=== PATIENT | male | born 1965 | race Caucasian/White ===

== ENCOUNTER → 2019-01-28 | Day surgery (SDC) | payer OTHER ==
--- NOTE | 2019-01-25 17:00 | Pre Op History & Physical ---
DATE OF SURGERY: January 28, 2019. CHIEF COMPLAINT: Scar tissue and contracture in the right anterior neck. This 53-year-old male had neck surgery in May of 2018 for his C-spine problem. The patient has been having difficulty with the scar tissue in the anterior neck where the incision was made. The patient has trouble extending his neck. He has also had trouble turning from side to side. The patient denies any dysphagia, odynophagia, or shortness of breath. The patient has been treated with massage for that area and then steroid injection of that area with no improvement. Even as of now, the patient has difficulty extending his head because of the scar band. REVIEW OF SYSTEMS: Showed no recent cardiovascular, respiratory, or GI problem. PAST MEDICAL HISTORY: The patient has history of type 2 diabetes. PAST SURGICAL HISTORY: The patient has previous knee surgery and elbow surgery, lumbar spine fusion, C-spine fusion x2, and left small finger amputated. ALLERGIES: HE IS ALLERGIC TO PENICILLIN. MEDICATIONS: He is on Trulicity, Synjardy, rosuvastatin, potassium, hydrochlorothiazide, and aspirin. SOCIAL HISTORY: The patient stopped smoking in 2011, had a 15-pack year smoking history. Drinks few drinks per week. FAMILY HISTORY: Noncontributory. PHYSICAL EXAMINATION: VITAL SIGNS: The patient's vital signs were within normal limits. EARS: S how normal tympanic membranes bilaterally. NASAL: Show no obvious abnormality. The patient does have hypertrophy of inferior turbinates. Oropharynx and oral cavity showed no obvious abnormality. NECK: Show no lymph node or thyroid palpable. MUSCULOSKELETAL: Exam of the neck showed the patient has a scar band on the paramedian right side of the neck, anterior to the SCM about 6 or 7 cm from the previous neck incision. The patient has trouble extending his neck because of the scalp contracture. CHEST: Show good air entry bilaterally. CARDIOVASCULAR: Show S1, S2. No murmur noted. ASSESSMENT AND PLAN: Mr. Mo has scar contracture of the anterior neck, which restrict his mobility of the neck. This is secondary to previous surgery and scarring on the soft tissue of the neck. The successful treatment is flap reconstruction with excision of the scar tissue with multiple Z-plasty and other necessary procedures. The complication of procedure includes, but not limited to bleeding, infection, wound breakdown, poor cosmetic result, trouble swallowing, numbness in the area, restriction of movement, persistent recurrence of the problem. The alternative will be continued observation, massage of cicatrix, and also steroid injection of the area. The patient has elected to undergo the surgical procedure. MD LUIZ Dodd/IESHA /[id number]
[~2019-01-28] MED LIST: ASPIR 8181 MG PO; CRESTOR40 MG PO; DEXAMETHASONE SOD PHOS 10 MG/1 ML VIAL ONE; DEXAMETHASONE SOD PHOS INJ 4 MG/ML VIAL ONE; FENTANYL CITRATE/PF 100MCG/2 ML INJ ONE; HYDROCHLOROTHIA25 MG PO; INSULIN REGULAR, HUMAN 100 UNIT/1 ML 3ML VIAL ONE; KETOROLAC TROMETHAMINE 30 MG/ML VIAL ONE; KLOR-CON M1515 MEQ PO; LIDOCAINE 1% W/EPINEPHRINE 20 ML VIAL ONE; LIDOCAINE HCL 2% LOCAL INJ 5 ML SDV VIAL INJ ONE; MIDAZOLAM HCL 2 MG/2 ML VIAL ONE; NEOSTIGMINE 1 MG/ML 10ML VIAL ONE; ONDANSETRON HCL INJ 2MG/ML 2ML 2 MG/ML VIAL ONE; OZEMPIC INJ; PROPOFOL IV EMULSION 10 MG/ML 20 ML VIAL ONE; ROCURONIUM BROMIDE 10 MG/ML 5ML VIAL ONE; SEVOFLURANE INHAL SOLN 250 ML PEN BTL ONE; SUCCINYLCHOLINE 200 MG/10 ML SYR ONE; SYNJARDY XR PO; TERBINAFINE HC250 MG PO; TRULICITY INJ
--- OUTSIDE RECORDS SUMMARY | 2019-01-28 06:45 | XMS REPORT | Clinical Summary ---
Author Author [employer] [facility] [employer] Address Unknown Phone Unavailable Care Team Providers Care Railroad Supervisor Of Engines Name Role Phone Blaze Obrien MD PCP Allergies Comments Active Allergy Reactions Severity Noted Date Penicillins Rash Low 03/06/2017 Medications End Date Status Medication Sig Dispensed Refills Start Date Active hydroCHLOROthiazide See 0 (HYDRODIURIL) 25 MG Instructions, 8 tablet # 90 tab, Refill(s) 2, TAKE 1 TABLET DAILY, Pharmacy: [facility] Active rosuvastatin (CRESTOR) 40 0 MG tablet 8 Active SYNJARDY XR 12.5-1,000 mg 0 tablet, IR & ER, biphasic 8 24hr Active TRULICITY 1.5 mg/0.5 mL 0 pen injector 8 Active potassium citrate 15 mEq=1 tab, 0 (UROCIT-K) 15 mEq tablet PO, BID, # 8 extended release 180 tab, 2 Refill(s), Pharmacy: [facility] Active loratadine (CLARITIN) 10 Take 10 mg by 0 mg tablet mouth daily. Active fluticasone (FLONASE) 50 2 sprays by 0 mcg/actuation nasal spray Each Nare route daily. 06/04/2018 Discontinued dexameth,PF,/norflur-HFC 1 vial as 1 kit 0 245fa 10 mg/mL kit needed (For 7 use in physical therapy, Iontophoresis ). 06/07/2018 Discontinued aspirin (ECOTRIN) 81 MG Take 81 mg by 0 enteric coated tablet mouth daily. Active Problems Problem Noted Date Preop testing 06/06/2018 Lateral epicondylitis of right elbow 07/06/2017 Encounters Care Team Description Date Type Specialty Chanell Duffy MD 06/06/2018 Anesthesia General Surgery Event Enio Murphy MD C3-4, C4-5 ACDF, EXPLORATION and ACDF C5-7 REMOVAL OF HARDWARE,plating, synthetic intervertebral spacer 06/06/2018 Surgery General Surgery Enio Murphy MD Preop testing 06/06/2018 [facility] General Surgery - Encounter 06/07/2018 Enio Murphy MD Preop testing (Primary Dx) 06/04/2018 Pre-Admit Pre-Admission Testing Testing Appointment Enio Murphy MD 06/04/2018 Hospital Radiology Encounter after 01/27/2018 Family History Medical History Relation Name Comments Diabetes Father Diabetes Mother Heart disease Mother Relation Name Status Comments Father Alive Mother Social History Date Tobacco Use Types Packs/Day Years Used Former Smoker Cigarettes 0.5 15 Smokeless Tobacco: Never Used Comments: quit 2011 Alcohol Use Drinks/Week oz/Week Comments Yes social Sex Assigned at Date Recorded Not on file Industry Job Start Date Occupation Not on file Not on file Not on file Travel End Travel History Travel Start No recent travel history available. Last Filed Vital Signs Time Taken Vital Sign Reading 06/07/2018 8:13 AM CDT Blood Pressure 141/78 06/07/2018 8:13 AM CDT Pulse 98 06/07/2018 8:13 AM CDT Temperature 36.7 C (98.1 F) 06/07/2018 8:13 AM CDT Respiratory Rate 18 06/07/2018 8:13 AM CDT Oxygen Saturation 95% - Inhaled Oxygen - Concentration 06/06/2018 8:22 AM CDT Weight 109 kg (239 lb 11.2 oz) 06/06/2018 8:22 AM CDT Height 177.8 cm (5' 10") 06/06/2018 8:22 AM CDT Body Mass Index 34.39 Plan of Treatment Health Maintenance Due Date Last Done Comments COLON CANCER SCREENING 2016 SHINGLES VACCINES (#1) 2016 INFLUENZA VACCINE 06/13/2018 Implants Device Identifier Shelf Expiration Date Model / Serial / [place] [id number] / / NA Novel Cervical Spacer, 8mm Medium, IPM N/A: Spine ALPHATEC 7 Degree Lordotic (Cervical IMPLANT Cervical SPINE Interbody - Implant) - [id number] DEVICES Implanted: Qty: 1 on 06/06/2018 [place] [id number] / / NA Novel Cervical Spacer, 7mm Medium, IPM N/A: Spine ALPHATEC 7 Degree Lordotic (Cervical IMPLANT Cervical SPINE Interbody - Implant) - [id number] DEVICES Implanted: Qty: 1 on 06/06/2018 [place] [id number] / / NA Trestle Lux Anterior Cervical Plate IPM N/A: Spine ALPHATEC Assembly, 2-Level, 32mm - IMPLANT Cervical SPINE [id number] DEVICES Implanted: Qty: 1 on 06/06/2018 [place] [id number] / / 4.0mm Trestle Luxe Variable Angle, IPM N/A: Spine ALPHATEC Self Tapping, Hexalobe Screw, Ti, IMPLANT Cervical SPINE 14mm - [id number] DEVICES Implanted: Qty: 1 on 06/06/2018 [place] [id number] 14 / / 4.0mm Trestle Luxe Variable Angle, IPM N/A: Spine ALPHATEC Self Tapping, Hexalobe Screw, Ti, IMPLANT Cervical SPINE 14mm - [id number] DEVICES Implanted: Qty: 5 on 06/06/2018 by Enio Murphy MD Procedures Comments Procedure Name Priority Date/Time Associated Diagnosis XR CERVICAL SPINE 2 OR 3 Routine 06/06/2018 VW 9:20 PM CDT POC GLUCOSE Routine 06/06/2018 3:11 PM CDT OR [place] > 1 HOUR Routine 06/06/2018 2:40 PM CDT XR CERVICAL SPINE 1 VW Routine 06/06/2018 2:40 PM CDT SURGICAL PATHOLOGY Routine 06/06/2018 REQUEST 12:46 PM CDT TN AN ELECTIVE Routine 06/06/2018 ENDOTRACHEAL AIRWAY 11:23 AM CDT Procedure Note - Mariela Rogers CRNA - 06/06/2018 11:23 AM CDT Airway Performed by: MARIELA ROGERS Authorized by: BETHANY SPARROW Location: OR Urgency: Elective Difficult Airway: No Anesthesio logist: BETHANY SPARROW. Resident/C RNA/AA: MARIELA ROGERS Performed by: resident/C RNA/AA Preoxygena charlene with 100% O2: Yes Mask Ventilatio n: Easy mask Final Airway Type: Endotrache al airway Final Endotrache al Airway: ETT Cuffed: Yes Technique Used: Video laryngosco py Devices/Me thods Used in Placement: Intubatin g stylet Insertion Site: Oral Laryngosco pe Blade/Vide olaryngosc ope Blade Size: 3 ETT Size (mm): 8.0 Cuff at minimum occlusion pressure: Yes Measured from: Lips ETT to Lips (cm): 23 Placement Verified by: CO2 detection, direct visualizat ion and equal breath sounds Laryngosco pic view: Grade I - full view of glottis Rapid Sequence Induction (RSI): No Modified RSI: No Number of Attempts at Approach: 1 DISCECTOMY, CERVICAL, 06/06/2018 CERVICAL SPONDYLOSIS WITH FUSION, ANTERIOR 10:00 AM CDT M47.812 APPROACH Special Needs NEEDS JAQUELINE STEVIE NEEDS LUXE REMOVAL, NATIONAL IOMMARK WITH ALPHATEC NOTIFIED OF CASE SCHEDULED FOR 06/06 1300 POC GLUCOSE Routine 06/06/2018 8:37 AM CDT POTASSIUM LEVEL Routine 06/06/2018 8:35 AM CDT XR CHEST 2 VW Routine 06/04/2018 Preop testing 3:55 PM CDT ECG 12-LEAD Routine 06/04/2018 Preop testing 3:31 PM CDT ZZESTIMATED GFR Routine 06/04/2018 3:30 PM CDT COMPREHENSIVE METABOLIC Routine 06/04/2018 Preop testing PANEL 3:30 PM CDT PARTIAL THROMBOPLASTIN Routine 06/04/2018 Preop testing TIME (PTT) 3:30 PM CDT PROTHROMBIN TIME WITH INR Routine 06/04/2018 Preop testing 3:30 PM CDT HC COMPLETE BLD COUNT Routine 06/04/2018 Preop testing W/AUTO DIFF 3:30 PM CDT after 01/27/2018 Results * XR Cervical Spine 2 Or 3 Vw (06/06/2018 9:20 PM CDT) Narrative Performed At EXAM:XR CERVICAL SPINE 2 OR 3 VW [facility] CLINICAL HISTORY: C-spine fusionfollow up, post op- in pacu COMPARISON: 06/06/2018, 14:30 2 views of the cervical spine are obtained. FINDINGS: Evidence for an ACDF from the C3-C5 levels with intervertebral disc spacers. Hardware appears intact. Alignment of vertebral bodies is normal. No acute fracture or spondylolisthesis is seen. Dens is at midline and appears intact on this limited evaluation. Soft tissues are unremarkable. IMPRESSION: Evidence for an ACDF from the C3-C5 levels with intervertebral disc spacers. Hardware appears intact. [facility]-[id number] Procedure Note Hm Interface, Radiology Results Incoming - 06/06/2018 9:27 PM CDT EXAM: XR CERVICAL SPINE 2 OR 3 VW CLINICAL HISTORY: C-spine fusion follow up, post op- in pacu COMPARISON: 06/06/2018, 14:30 2 views of the cervical spine are obtained. FINDINGS: Evidence for an ACDF from the C3-C5 levels with intervertebral disc spacers. Hardware appears intact. Alignment of vertebral bodies is normal. No acute fracture or spondylolisthesis is seen. Dens is at midline and appears intact on this limited evaluation. Soft tissues are unremarkable. IMPRESSION: Evidence for an ACDF from the C3-C5 levels with intervertebral disc spacers. Hardware appears intact. [facility]-[id number] Performing Organization Address City/[facility]/Zipcode Phone Number [facility] [address] [place] [address] * POC glucose (06/06/2018 3:11 PM CDT) Only the most recent of 2 results within the time period is included. POC glucose 167 (H) 65 - 99 mg/dL [facility] DEPARTMENT OF Comment: PATHOLOGY AND Meter ID: [id number] GENOMIC MEDICINE Electronic Intelligence Officer: Meliton Ibarra Performing Organization Address City/[facility]/Zipcode Phone Number [address] [place] [address] PATHOLOGY AND GENOMIC MEDICINE * OR [place] > I Hour (06/06/2018 2:40 PM CDT) Narrative Performed At EXAMINATION:OR [place] 1 HOUR [facility] C-arm fluoroscopy was requested in OR.FLUORO TIME 0:07 IMPRESSION: Separate operative report will be issued by the physician performing the procedure. [id number] Procedure Note Interface, Radiology Results Incoming - 06/06/2018 3:36 PM CDT EXAMINATION: OR FL 1 HOUR C-arm fluoroscopy was requested in OR. FLUORO TIME 0:07 IMPRESSION: Separate operative report will be issued by the physician performing the procedure. [id number] Performing Organization Address [facility] Phone Number [facility] [address] [place] [address] * XR Cervical Spine 1 Vw (06/06/2018 2:40 PM CDT) Narrative Performed At EXAMINATION: XR CERVICAL SPINE 1 VW [facility] CLINICAL HISTORY: Intraoperative study COMPARISON:None IMPRESSION: Single lateral fluoroscopic spot view of the cervical spine demonstrates anterior spinal fusion C3-C5 with anterior plate and screw fixation and interbody grafts. Hardware appears in functional position. [id number] Procedure Note Interface, Radiology Results Incoming - 06/06/2018 4:08 PM CDT EXAMINATION: XR CERVICAL SPINE 1 VW CLINICAL HISTORY: Intraoperative study COMPARISON: None IMPRESSION: Single lateral fluoroscopic spot view of the cervical spine demonstrates anterior spinal fusion C3-C5 with anterior plate and screw fixation and interbody grafts. Hardware appears in functional position. [id number] Performing Organization Address [facility] Phone Number [facility] [address] [place] [address] * Surgical pathology request (06/06/2018 12:46 PM CDT) [facility] DEPARTMENT OF PATHOLOGY AND GENOMIC MEDICINE Surgical pathology report See link below for PDF Lab [facility] DEPARTMENT OF Report PATHOLOGY AND GENOMIC MEDICINE Result status This is Final Report to [facility] DEPARTMENT OF [id number] PATHOLOGY AND GENOMIC MEDICINE Performing Organization Address [facility] Cent[facility] Phone Number [address] [place] [address] PATHOLOGY AND GENOMIC MEDICINE * Potassium level (06/06/2018 8:35 AM CDT) Potassium 3.9 3.5 - 5.0 mEq/L [facility] DEPARTMENT OF PATHOLOGY AND GENOMIC MEDICINE Specimen Plasma specimen Performing Organization Address [facility] Cent[facility]ode Phone Number [facility] DEPARTMENT [address] [place] [address] PATHOLOGY AND GENOMIC MEDICINE * XR Chest 2 Vw (06/04/2018 3:55 PM CDT) Narrative Performed At EXAMINATION:XR CHEST 2 VW [facility] CLINICAL HISTORY:Z01.818 Encounter for other preprocedural examination, preop XR CHEST 2 VWimages are submitted COMPARISON:NONE FINDINGS: Lines/tubes:None. Heart and mediastinum:Unremarkable Lungs:The lungs are well inflated and clear. There is no evidence of pneumonia or pulmonary edema. Pleura:There is no pleural effusion or pneumothorax. Bones:Mild degenerative changes of thoracic spine. Status post ACDF. IMPRESSION: Negative for acute cardiopulmonary disease. [id number] Procedure Note Hm Interface, Radiology Results Incoming - 06/04/2018 4:16 PM CDT EXAMINATION: XR CHEST 2 VW CLINICAL HISTORY: Z01.818 Encounter for other preprocedural examination, preop XR CHEST 2 VW images are submitted COMPARISON: NONE FINDINGS: Lines/tubes: None. Heart and mediastinum: Unremarkable Lungs: The lungs are well inflated and clear. There is no evidence of pneumonia or pulmonary edema. Pleura: There is no pleural effusion or pneumothorax. Bones: Mild degenerative changes of thoracic spine. Status post ACDF. IMPRESSION: Negative for acute cardiopulmonary disease. [id number] Performing Organization Address [facility]/Zipcode Phone Number [facility] [address] [place] [address] * ECG 12 lead (06/04/2018 3:31 PM CDT) Ventricular rate 85 [facility] Atrial rate 85 [facility] TN interval 172 [facility] QRSD interval 90 [facility] QT interval 366 [facility] QTC interval 435 [facility] P axis 1 49 [facility] QRS axis 1 -37 [facility] T wave axis 17 [facility] EKG impression Normal sinus rhythm-Left axis [facility] MUSE deviation-Low voltage QRS-Abnormal ECG-No previous ECGs available- Performing Organization Address [facility] Phone Number [facility] MUSE [address] [place] [address] * Estimated GFR (06/04/2018 3:30 PM CDT) GFR Non Af Amer 79 mL/min/1.73 m2 [facility] DEPARTMENT OF PATHOLOGY AND GENOMIC MEDICINE GFR Af Amer >90 mL/min/1.73 m2 [facility] DEPARTMENT OF Comment: PATHOLOGY AND Chronic kidney disease: <60 GENOMIC MEDICINE mL/min/1.73m2 Kidney failure: <15 mL/min/1.73m2 The estimated GFR is calculated from the IDMS-traceable Modification of Diet in Renal Disease Equation. The accuracy of the calculation is poor when the creatinine is normal. Calculated values >90 mL/min/1.73m2 are not reported. This equation has not been validated in children (<18 years), women, the elderly (>70 years), or ethnic groups other than Caucasians and Americans. Specimen Plasma specimen Performing Organization Address [facility] Phone Number [address] [place] [address] PATHOLOGY AND [employer] [facility] * Partial thromboplastin time, activated (06/04/2018 3:30 PM CDT) PTT 28.8 23.0 - 36.0 sec [facility] DEPARTMENT OF Comment: PATHOLOGY AND PTT therapeutic range for [facility] MEDICINE unfractionated heparin is 61.0-112.0 seconds which corresponds to Anti-Xa 0.3-0.7 U/ml. Specimen Blood Performing Organization Address [facility] Phone Number [address] [place] [address] PATHOLOGY AND [employer] [facility] * Prothrombin time with INR (06/04/2018 3:30 PM CDT) Prothrombin time 12.9 12.0 - 15.0 sec [facility] DEPARTMENT OF PATHOLOGY AND [employer] MEDICINE INR 1.0 [facility] DEPARTMENT OF Comment: PATHOLOGY AND The International Normalized [facility] MED[facility] Ratio (INR) is a therapeutic monitoring tool for patients who are stable on oral anticoagulant therapy. An INR of 2.0-3.0 is suggested for deep vein thrombosis/pulmonary embolism. Specimen Blood Performing Organization Address [facility] Phone Number [address] [place] [id number] PATHOLOGY AND [employer] [facility] * CBC with platelet and differential (06/04/2018 3:30 PM CDT) WBC 6.63 4.50 - 11.00 k/uL [facility] DEPARTMENT OF PATHOLOGY AND [employer] MEDICINE RBC 5.65 4.40 - 6.00 m/uL [facility] DEPARTMENT OF PATHOLOGY AND GENOMIC MEDICINE HGB 15.5 14.0 - 18.0 g/dL [facility] DEPARTMENT OF PATHOLOGY AND GENOMIC MEDICINE HCT 47.0 41.0 - 51.0 % [facility] DEPARTMENT OF PATHOLOGY AND GENOMIC MEDICINE MCV 83.2 82.0 - 100.0 fL [facility] DEPARTMENT OF PATHOLOGY AND GENOMIC MEDICINE MCH 27.4 27.0 - 34.0 pg [facility] DEPARTMENT OF PATHOLOGY AND GENOMIC MEDICINE MCHC 33.0 31.0 - 37.0 g/dL [facility] DEPARTMENT OF PATHOLOGY AND GENOMIC MEDICINE RDW - SD 41.6 37.0 - 55.0 fL [facility] DEPARTMENT OF PATHOLOGY AND GENOMIC MEDICINE MPV 10.4 8.8 - 13.2 fL [facility] DEPARTMENT OF PATHOLOGY AND GENOMIC MEDICINE Platelet count 231 150 - 400 k/uL [facility] DEPARTMENT OF PATHOLOGY AND GENOMIC MEDICINE Nucleated RBC 0.00 /100 WBC [facility] DEPARTMENT OF PATHOLOGY AND GENOMIC MEDICINE Neutrophils 50.3 39.0 - 69.0 % [facility] DEPARTMENT OF PATHOLOGY AND GENOMIC MEDICINE Lymphocytes 37.3 25.0 - 45.0 % [facility] DEPARTMENT OF PATHOLOGY AND GENOMIC MEDICINE Monocytes 9.8 0.0 - 10.0 % [facility] DEPARTMENT OF PATHOLOGY AND GENOMIC MEDICINE Eosinophils 1.1 0.0 - 5.0 % [facility] DEPARTMENT OF PATHOLOGY AND GENOMIC MEDICINE Basophils 1.2 (H) 0.0 - 1.0 % [facility] DEPARTMENT OF PATHOLOGY AND GENOMIC MEDICINE Specimen Blood Performing Organization Address City/State/Zipcode Phone Number [facility] [address] [place] [address] PATHOLOGY AND GENOMIC MEDICINE * Comprehensive metabolic panel (06/04/2018 3:30 PM CDT) Sodium 139 135 - 148 mEq/L [facility] DEPARTMENT OF PATHOLOGY AND GENOMIC MEDICINE Potassium 3.2 (L) 3.5 - 5.0 mEq/L [facility] DEPARTMENT OF PATHOLOGY AND GENOMIC MEDICINE Chloride 94 (L) 98 - 112 mEq/L [facility] DEPARTMENT OF PATHOLOGY AND GENOMIC MEDICINE CO2 28 24 - 31 mEq/L [facility] DEPARTMENT OF PATHOLOGY AND GENOMIC MEDICINE Anion gap 17@ANIO (H) 7 - 15 mEq/L [facility] DEPARTMENT OF PATHOLOGY AND GENOMIC MEDICINE BUN 18 6 - 20 mg/dL [facility] DEPARTMENT OF PATHOLOGY AND GENOMIC MEDICINE Creatinine 1.0 0.7 - 1.2 mg/dL [facility] DEPARTMENT OF PATHOLOGY AND GENOMIC MEDICINE Glucose 120 (H) 65 - 99 mg/dL [facility] DEPARTMENT OF PATHOLOGY AND GENOMIC MEDICINE Calcium 9.7 8.3 - 10.2 mg/dL [facility] DEPARTMENT OF PATHOLOGY AND GENOMIC MEDICINE Protein 7.9 6.3 - 8.3 g/dL [facility] DEPARTMENT OF Comment: PATHOLOGY AND [place] GENOMIC MEDICINE 4.6-7.0 g/dL 1 week 4.4-7.6 g/dL 7 months-1year 5.1-7.3 g/dL 1-2 years5.6-7 .5 g/dL >3 years6.0-8 .0 g/dL 18-150 6.3-8.3 g/dL Albumin 4.6 3.5 - 5.0 g/dL [facility] OF PATHOLOGY AND GENOMIC MEDICINE A/G ratio 1.4 0.7 - 3.8 [facility] OF PATHOLOGY AND GENOMIC MEDICINE Alkaline phosphatase 69 40 - 129 U/L [facility] DEPARTMENT OF PATHOLOGY AND GENOMIC MEDICINE AST 22 10 - 50 U/L [facility] DEPARTMENT OF PATHOLOGY AND GENOMIC MEDICINE ALT 25 5 - 50 U/L [facility] OF PATHOLOGY AND GENOMIC MEDICINE Total bilirubin 0.4 0.0 - 1.2 mg/dL [facility] OF PATHOLOGY AND GENOMIC MEDICINE Specimen Plasma specimen Performing Organization Address City/State/Zipcode Phone Number [facility] [address] [place] [address] PATHOLOGY AND GENOMIC MEDICINE after 01/27/2018 Insurance Payer Benefit Subscriber ID Type Phone Address Plan / Group AETNA AETNA xxxxxxxxxx HMO HMO,POS,EP O, MC/EC Advance Directives Patient has advance care planning documents, and code status on file. For more i nformation, please contact: Sy Cast [address] [place] [address] Date Inactivated Comments Code Status Date Activated 06/07/2018 2:15 PM Full Code 06/06/2018 7:28 PM Code Status decision reached by: Patient
--- OUTSIDE RECORDS SUMMARY | 2019-01-28 06:46 | XMS REPORT | Summary of Care ---
Author Author [facility] Organization [facility] Address Unknown Phone Unavailable Encounter HQ Orly(FIN) [phone] Date(s): 01/10/19 - 01/10/19 [facility] [address] [place] [address] Discharge Disposition: Home or Self Care Attending Physician: Yoav Starr MD Vital Signs Most recent to 1 oldest [Reference Range]: Height 177.8 cm (01/10/19 9:54 AM) Temperature Oral 98.7 DegF [96.4-99.1 DegF] (01/10/19 9:54 AM) Blood Pressure 144/78 mmHg [90-140/60-90 mmHg] *HI* (01/10/19 9:54 AM) Peripheral Pulse 84 bpm Rate [60-100 bpm] (01/10/19 9:54 AM) Weight 111.477 kg (01/10/19 9:54 AM) Body Mass Index 35.26 m2 (01/10/19 9:54 AM) Problem List Condition Effective Dates Status Health Status Informant Acute bronchitis1, 2 01/30/15 Active DM - Diabetes Resolved mellitus(Confirmed) Hyperlipidemia(Confi Resolved rmed) Kidney stone3 02/17/15 Active Obesity(Confirmed) Active Ureteric stone4 04/24/15 Active 1Data migrated from [employer] on 05/20/15. 2Data migrated from [employer] on 04/14/15. 3Data migrated from [employer] on 04/14/15. 4Data migrated from [employer] on 05/20/15. Allergies, Adverse Reactions, Alerts Substance Reaction Severity Status penicillin Active Medications aspirin 81 mg tablet, chewable 81 mg=1 tab, CHEW, Daily, 0 Refill(s) Start Date: 01/10/19 Status: Ordered hydrochlorothiazide 25 mg oral tablet 25 mg=1 tab, PO, Daily, # 90 tab, 2 Refill(s), Pharmacy: [facility] Start Date: 01/10/19 Stop Date: 10/07/19 Status: Ordered Ozempic (1 mg dose) 2 mg/1.5 mL subcutaneous solution SUB-Q, 0 Refill(s) Start Date: 01/10/19 Status: Ordered potassium citrate 15 mEq oral tablet, extended release 15 mEq=1 tab, PO, BID, # 180 tab, 2 Refill(s), Pharmacy: [facility] Start Date: 01/10/19 Stop Date: 10/07/19 Status: Ordered rosuvastatin 40 mg oral tablet 40 mg=1 tab, PO, Bedtime, # 30 tab, 0 Refill(s) Start Date: 01/10/19 Stop Date: 02/09/19 Status: Ordered Synjardy 12.5 mg-1000 mg oral tablet 1 tab, PO, BID, 0 Refill(s) Start Date: 01/10/19 Status: Ordered Uroxatral 10 mg oral tablet, extended release 10 mg=1 tab, PO, Daily, # 90 tab, 3 Refill(s), Pharmacy: [facility] Start Date: 01/10/19 Stop Date: 01/05/20 Status: Ordered Results No data available for this section Immunizations No data available for this section Procedures Procedure Date Related Diagnosis Body Site Status Measurement of post-voiding residual urine 01/10/19 Completed and/or bladder capacity by ultrasound, non-imaging Cystoscopy1 04/16/15 Completed Lumbar Completed Miscellaneous operations2 Completed 1Cystoscopy under anesthesia, urethral dilation, right ureteroscopy, laser lithotripsy and basket extraction of stone,and right ureteral stent placement. 2Orhto: knees,elbows,lumbar and cervical spine Social History Social History Type Response Alcohol Current, Type Beer, Wine, Liquor. Frequency: 1-2 times per month. Alcohol use interferes with work or home: No. Drinks more than intended: No. Others hurt by drinking: No. Ready to change: No. Household alcohol concerns: No. Smoking Status Former smoker; Exposure to Tobacco Smoke None; Cigarette Smoking Last 365 Days No; Reg Smoking Cessation Counseling No entered on: 01/10/19 Assessment and Plan No data available for this section
--- OUTSIDE RECORDS SUMMARY | 2019-01-28 06:46 | XMS REPORT | Summary of Care ---
Author Author [facility] Organization [facility] Address Unknown Phone Unavailable Encounter LUC Villalba(FIN) [phone] Date(s): 01/11/19 - 01/12/19 [facility] [address] [place] [address] Vital Signs No data available for this section Problem List Condition Effective Dates Status Health [...] Substance Reaction Severity Status penicillin Active Medications No data available for this section Results No data available for this section Immunizations No data available for this section Procedures Procedure Date Related Diagnosis Body Site Status Cystoscopy1 04/16/15 Completed Lumbar Completed Miscellaneous operations2 [...]
--- OUTSIDE RECORDS SUMMARY | 2019-01-28 06:46 | XMS REPORT | Continuity of Care Document ---
Author Author [facility] Address Unknown Phone Unavailable Care Team Providers Care C[employer]os Report Developer Name Role Phone MD Matty, Yoav GONSALVES Unavailable Insurance Providers Payer name Policy type / Coverage type Policy ID Covered constitution party ID Policy Del[place]adillo [facility] [id number] AETNA (PPO) [employer] - [employer] BENEFIT P AETNA (PPO) AETNA (PPO) AETNA (PPO) AETNA (PPO) AETNA (PPO) AETNA (PPO) AETNA (PPO) AETNA (PPO) [facility] - AETNA - FOREIGN SERVI AETNA (PPO) AETNA (PPO) AETNA (PPO) AETNA (PPO) [employer] - [employer] BENEFIT P AETNA (PPO) [employer] - [employer] BENEFIT P AETNA (PPO) [employer] - [employer] BENEFIT P AETNA (PPO) [facility] - AETNA - FOREIGN SERVI [employer] - [place] [employer] BENEFIT P AETNA (PPO) [facility] - AETNA - FOREIGN SERVI [employer] - [employer] BENEFIT P AETNA (PPO) [employer] - [employer] BENEFIT P AETNA (PPO) [employer] - [employer] BENEFIT P AETNA (PPO) [employer] - [employer] BENEFIT P AETNA (PPO) [employer] - [employer] BENEFIT P AETNA (PPO) [employer] - [employer] BENEFIT P AETNA (PPO) [employer] - [employer] BENEFIT P AETNA (PPO) Encounters Encounter Performer Location Date Lab Report Yoav Starr MD [facility] Urology May 29, 2015 Allergies, Adverse Reactions, Alerts Type Substance Reaction Status Drug allergy PENICILLIN Active Problems Problem Effective Dates Problem Status DIABETES MELLITUS Active HYPERLIPIDEMIA Active BACK PAIN March 26, 2013 Active SCIATICA, LEFT March 26, 2013 Active BRONCHITIS, ACUTE Jan 30, 2015 Active KIDNEY STONE Feb 17, 2015 Active URETERAL CALCULUS Apr 24, 2015 Active Procedures Date Description Comments March 26, 2013 smoking status former smoker Jan 30, 2015 smoking status former smoker Feb 17, 2015 smoking status former smoker Medications Medication Instructions Start Date Status PRAVASTATIN SODIUM 40 MG TABS 1 tablet by mouth once daily March 26, 2013 Active ROBAXIN-750 750 MG TAB 1 q6h prn spasm March 26, 2013 Inactive DICLOFENAC TAB 50MG EC i po tid prn pain March 26, 2013 Inactive JANUMET XR 50-500 1 tablet by mouth ONCE daily Nov 16, 2015 Active AZITHROMYCIN 250 MG TABS 2 tablets PO today, then 1 tablet PO daily for days 2-5 Jan 30, 2015 Inactive CHERATUSSIN AC 100-10 MG/5ML SYRP 10 ml PO every 12 hours PRN cough Jan 30, 2015 Active LEVAQUIN 500 MG TABS 1 tablet PO daily for 7 days Feb 17, 2015 Inactive SINGULAIR 10 MG TABS 1 tablet PO daily at bedtime Feb 17, 2015 Active FLOMAX 0.4 MG CAPS 1 tablet PO daily for 5 days Feb 17, 2015 Inactive NAPROSYN 500 MG TABS 1 tablet PO BID PRN pain Feb 17, 2015 Active Immunizations Vaccine Date Status pneumococcal immunization administered Sep 14, 2011 completed Vital Signs Date Description Test Result March 26, 2013 height E&M - 8302-2 HEIGHT 69 in March 26, 2013 weight E&M - 3141-9 WEIGHT 250.4 lb March 26, 2013 temperature E&M TEMPERATURE 98.6 deg f March 26, 2013 pulse rate E&M - 8867-4 PULSE RATE 60 /min March 26, 2013 blood pressure, systolic - 8480-6 BP SYSTOLIC 140 mm Hg March 26, 2013 blood pressure, diastolic - 8462-4 BP DIASTOLIC 72 mm Hg March 26, 2013 respiratory rate E&M - 9279-1 RESP RATE 20 /min Jan 30, 2015 weight E&M - 3141-9 WEIGHT 275 lb Jan 30, 2015 temperature E&M TEMPERATURE 98.2 deg f Jan 30, 2015 pulse rate E&M - 8867-4 PULSE RATE 80 /min Jan 30, 2015 respiratory rate E&M - 9279-1 RESP RATE 16 /min Jan 30, 2015 blood pressure, systolic - 8480-6 BP SYSTOLIC 110 mm Hg Jan 30, 2015 blood pressure, diastolic - 8462-4 BP DIASTOLIC 80 mm Hg Feb 17, 2015 weight E&M - 3141-9 WEIGHT 275 lb Feb 17, 2015 temperature E&M TEMPERATURE 98.6 deg f Feb 17, 2015 pulse rate E&M - 8867-4 PULSE RATE 92 /min Feb 17, 2015 blood pressure, systolic - 8480-6 BP SYSTOLIC 139 mm Hg Feb 17, 2015 blood pressure, diastolic - 8462-4 BP DIASTOLIC 92 mm Hg Feb 17, 2015 respiratory rate E&M - 9279-1 RESP RATE 16 /min Apr 24, 2015 weight E&M - 3141-9 WEIGHT 262.13 lb Apr 24, 2015 pulse rate E&M - 8867-4 PULSE RATE 90 /min Apr 24, 2015 blood pressure, systolic - 8480-6 BP SYSTOLIC 120 mm Hg Apr 24, 2015 blood pressure, diastolic - 8462-4 BP DIASTOLIC 81 mm Hg Results Date Description Test Name Value Reference Interpretation Status May 29, 2015 uric acid, serum URIC ACID 5.4 mg/dL 3.8-8.0 May 29, 2015 urea nitrogen, blood BUN 18 mg/dL 7-May 29, 2015 creatinine, serum CREATININE 1.1 mg/dL 0.5-1.4 May 29, 2015 sodium, serum SODIUM 139 MEQ/L mmol/L 135-145 May 29, 2015 potassium, serum POTASSIUM 4.1 MEQ/L mmol/L 3.5-5.1 May 29, 2015 calcium, serum CALCIUM 9.2 mg/dL 8.5-10.5 May 29, 2015 parathormone, serum PTH, INTACT 42.3 pg/mL 11.1-79.5
--- OUTSIDE RECORDS SUMMARY | 2019-01-28 06:46 | XMS REPORT | Continuity of Care Document ---
Author Author [facility] Organization [facility] Address Unknown Phone Unavailable Care Team Providers Care School Supervisor Name Role Phone JUAN ANTONIO Villegas Britt PP Unavailable Insurance Providers Payer name Policy type / Coverage type Policy ID Covered republican ID Policy Delgadillo [facility] [id number] AETNA (PPO) [employer] Authentication - [employer]ICE BENEFIT P AETNA (PPO) AETNA (PPO) AETNA (PPO) AETNA (PPO) AETNA (PPO) Encounters Encounter Performer Location Date Office Visit Shyanne Villegas APRN [facility] Jan 30, 2015 Allergies, Adverse Reactions, Alerts Type Substance Reaction Status Drug allergy PENICILLIN Active Problems Problem Effective Dates Problem Status DIABETES MELLITUS Active HYPERLIPIDEMIA Active BACK PAIN March 26, 2013 Active SCIATICA, LEFT March 26, 2013 Active BRONCHITIS, ACUTE Jan 30, 2015 Active Procedures Date Description Comments March 26, 2013 smoking status former smoker Jan 30, 2015 smoking status former smoker Medications Medication [...] daily for days 2-5 Jan 30, 2015 Active CHERATUSSIN AC 100-10 MG/5ML SYRP 10 ml PO every 12 hours PRN cough Jan 30, 2015 Active Immunizations Vaccine Date Status pneumococcal [...]
--- OUTSIDE RECORDS SUMMARY | 2019-01-28 06:46 | XMS REPORT | Continuity of Care Document ---
Author Author Edmund tucker [facility] Interface Address Unknown Phone Unavailable Problems Problem Status Onset Date Classification Date Reported Comments Source Pain in right elbow 01/03/2018 04/05/2018 [facility] [place] N20.0 - CALCULUS OF KIDNEY R29.9 - UNSP Active 08/01/2017 [facility] [place] Discharge Diagnosis: Chest wall pain 10/05/2016 10/08/2016 [place] Discharge Diagnosis: Musculoskeletal pain 10/05/2016 10/08/2016 [place] CHEST PAIN Active 10/04/2016 [place] 592.0 - CALCULUS OF KID Active 07/27/2015 [facility] [place] URETERAL CALCULUS Active 04/24/2015 Condition 06/01/2015 [facility] Ureteric stone<sup>5</sup> Active 04/24/2015 Problem 04/05/2018 Data migrated from [employer] on 05/20/15. [facility] [place], [facility], [place] Ureteric stone<sup>4</sup> Active 04/24/2015 Problem 01/14/2019 Data migrated from [employer] on 05/20/15. [facility] [place] BACK PAIN Active 04/15/2015 [place] KIDNEY STONE Active 02/17/2015 Condition 06/01/2015 [facility] Kidney stone<sup>4</sup> Active 02/17/2015 Problem 04/05/2018 Data migrated from [employer] on 05/20/15. [facility] [place] [place] Kidney stone<sup>3</sup> Active 02/17/2015 Problem 01/14/2019 Data migrated from [employer] on 04/14/15. [facility] [place], [facility] Kidney stone<sup>2</sup> Active 02/17/2015 Problem 04/19/2015 2Data migrated from [employer] on 04/14/15. [place] BRONCHITIS, ACUTE Active 01/30/2015 Condition 06/01/2015 [facility] Acute bronchitis<sup>1, 2</sup> Active 01/30/2015 Problem 01/14/2019 Data migrated from [employer] on 04/14/15. [facility] [place] Acute bronchitis<sup>1</sup> Active 01/30/2015 Problem 04/19/2015 1Data migrated from [employer] on 04/14/15. [place] BACK PAIN Active 03/26/2013 Condition 06/01/2015 [facility] SCIATICA, LEFT Active 03/26/2013 Condition 06/01/2015 [facility] DIABETES MELLITUS Active Condition 06/01/2015 [facility] HYPERLIPIDEMIA Active Condition 06/01/2015 [facility] Other enthesopathies, not elsewhere classified 04/05/2018 [facility] [place] Strain of other extensor muscle, fascia and tendon at forearm level, right arm, initial encounter 04/05/2018 [facility] [place] DM - Diabetes mellitus Resolved Problem 01/14/2019 [facility] [place], [facility] Hyperlipidemia Resolved Problem 01/14/2019 [facility] [place], Medical [facility] Obesity Active Problem 01/14/2019 [facility] [place], [facility] Kidney stone Resolved Problem 04/19/2015 [place] Medications Medication Details Route Status Patient Instructions Ordering Provider Order Date Source potassium citrate 15 mEq oral tablet, extended release 15 mEq=1 tab, PO, BID, # 180 tab, 2 Refill(s), Pharmacy: [facility] Active 01/10/2019 [facility] Hydrochlorothiazide 25 MG Oral Tablet 25 mg=1 tab, PO, Daily, # 90 tab, 2 Refill(s), Pharmacy: [facility] Active 01/10/2019 [facility] 24 HR Alfuzosin hydrochloride 10 MG Extended Release Tablet [UroXatral] 10 mg=1 tab, PO, Daily, # 90 tab, 3 Refill(s), Pharmacy: [facility] Active 01/10/2019 [facility] rosuvastatin 40 mg oral tablet 40 mg=1 tab, PO, Bedtime, # 30 tab, 0 Refill(s) Active 01/10/2019 [facility] 1 MG Dose 1.5 ML semaglutide 1.34 MG/ML Pen Injector [Ozempic] SUB-Q, 0 Refill(s) Active 01/10/2019 [facility] empagliflozin 12.5 MG / Metformin hydrochloride 1000 MG Oral Tablet [Synjardy] 1 tab, PO, BID, 0 Refill(s) Active 01/10/2019 [facility] Aspirin 81 MG Chewable Tablet 81 mg=1 tab, CHEW, Daily, 0 Refill(s) Active 01/10/2019 [facility] potassium citrate 15 mEq oral tablet, extended release 15 mEq=1 tab, PO, BID, # 180 tab, 2 Refill(s), Pharmacy: [facility] Active 11/29/2017 [facility] Hydrochlorothiazide 25 MG Oral Tablet See Instructions, # 90 tab, Refill(s) 2, TAKE 1 TABLET DAILY, Pharmacy: [facility] Active 11/29/2017 [facility] Acetaminophen 300 MG / Codeine Phosphate 30 MG Oral Tablet [Tylenol with Codeine #3] 1 tab, PO, Q6H, PRN Pain, X 3 day, # 12 tab, 0 Refill(s) Active 10/05/2016 [place] Motrin 600 mg oral tablet 600 mg=1 tab, PO, Q6H, PRN Pain, take with food, X 5 day, # 20 tab, 0 Refill(s) Active 10/05/2016 [place] Acetaminophen 300 MG / Codeine Phosphate 30 MG Oral Tablet [Tylenol with Codeine #3] 1 tab, Route: PO, Drug Form: TAB, Dosing Weight 118.182, kg, ONCE, STAT, Start date: 10/04/16 22:50: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 (Same as: Tylenol with Codeine # 3) Inactive 10/05/2016 [place] Saline Flush 0.9% 10 mL, Route: IVP, Drug Form: INJ, Dosing Weight 118.182, kg, PRN, PRN Line Flush, Start date: 10/04/16 22:50:00 [employer] SOFTWARE ENGINEER, Duration: 30 day, Stop date: 11/03/16 22:49:00 CSTNotes: (Same as: BD Posiflush) No Longer Active 10/05/2016 [place] Aspirin 324 mg, 4 tab, Route: PO, Drug form: CHEWTAB, ONCE, Dosing Weight 118.182, kg, Priority: STAT, Start date: 10/04/16 22:50:00 [employer] SOFTWARE ENGINEER, Stop date: 10/04/16 22:50:00 CSTNotes: Take with food. Inactive 10/05/2016 [place] JANUMET XR 50-500 1 tablet by mouth ONCE daily Active 11/16/2015 [facility] Pyridium 200 mg, 2 tab, Route: PO, Drug form: TAB, TID- After Meals, Dosing Weight 121.364, kg, Start date: 04/16/15 12:30:00, Duration: 2 day, Stop date: 04/18/15 8:30:00Notes: Give with meals. (Same as: Pyridium) Inactive 04/16/2015 [facility] Docusate Sodium 100 MG Oral Capsule [Colace] 100 mg=1 cap, PO, BID, PRN Constipation, # 20 cap, 0 Refill(s) Active 04/16/2015 [place] Tamsulosin hydrochloride 0.4 MG Oral Capsule [Flomax] =1 tab, PO, Daily, # 14 tab, 0 Refill(s) Active 04/16/2015 [facility] Phenazopyridine hydrochloride 200 MG Oral Tablet [Pyridium] 200 mg=1 tab, PO, TID, PRN Dysuria, X 3 day, # 9 tab, 0 Refill(s) Active 04/16/2015 [facility] Acetaminophen 300 MG / Codeine Phosphate 30 MG Oral Tablet [Tylenol with Codeine #3] 1 - 2 tab, PO, Q6H, PRN Pain, X 4 day, # 32 tab, 0 Refill(s) Active 04/16/2015 [facility] Ciprofloxacin 250 MG Oral Tablet [Cipro] 250 mg=1 tab, PO, Q12H, X 7 day, # 14 tab, 0 Refill(s) Active 04/16/2015 [facility] Nasacort 2 sprays, Each Affected Nostril, Daily, 0 Refill(s) Active 04/16/2015 [place] Loratadine 10 MG Oral Tablet [Claritin] 10 mg=1 tab, PO, Daily, # 30 tab, 0 Refill(s) Active 04/16/2015 [place] Janumet XR 100/1000 mg tablet Janumet XR 100/1000 mg tablet, 1 tab, PO, Bedtime, Janumet XR 100/1000 mg tablet (sitagliptin/metformin), Refill(s) 0Special Instructions: Janumet XR 100/1000 mg tablet (sitagliptin/metformin) Active 04/16/2015 [place] canagliflozin 100 MG Oral Tablet [Invokana] 100 mg=1 tab, PO, Before Breakfast, # 30 tab, 0 Refill(s) Active 04/16/2015 [place] pravastatin 40 mg oral tablet 40 mg=1 tab, PO, Daily, # 90 tab, 0 Refill(s) Active 04/16/2015 [place] Ciprofloxacin 2 MG/ML Injectable Solution [Cipro] 400 mg, 200 mL, Route: IVPB, Drug form: INJ, PRE OP, Dosing Weight 121.364, kg, Start date: 04/16/15 8:00:00Notes: Do not refrigerate Inactive 04/16/2015 [place] pantoprazole 40 mg, 1 tab, Route: PO, Drug form: ECTAB, Before Breakfast, Dosing Weight 121.364, kg, Start date: 04/16/15 7:30:00, Duration: 30 day, Stop date: 05/15/15 7:30:00Notes: Tablet should not be chewed or crushed. (Same as: Protonix) Inactive 04/16/2015 [place] Docusate 100 mg, 1 cap, Route: PO, Drug form: CAP, BID, Dosing Weight 121.364, kg, Start date: 04/15/15 17:00:00, Duration: 30 day, Stop date: 05/15/15 9:00:00Notes: (Same as: Colace) (Do Not Crush) No Longer Active 04/15/2015 [place] Insulin, Aspart, Human 3 unit, 0.03 mL, Route: SUB-Q, Drug form: SOLN, Bedtime, Dosing Weight 121.364, kg, PRN Blood Glucose Results, Start date: 04/15/15 15:46:00, Duration: 30 day, Stop date: 05/15/15 15:45:00Notes: Roll in palms of hands gently; Do not shake vigorously. (Same as: NovoLOG) "single patient use only" Stable for 28 days at room temperature. Expires in days from Date No Longer Active 04/15/2015 [place] Dextrose 50% Syringe 12.5 gm, 25 mL, Route: IVP, Drug Form: INJ, Dosing Weight 121.364, kg, PRN, PRN Blood Glucose Results, Start date: 04/15/15 15:46:00, Duration: 30 day, Stop date: 05/15/15 15:45:00 No Longer Active 04/15/2015 [place] Glucagon 1 mg, Route: IM, Drug form: PDR/INJ, PRN, Dosing Weight 121.364, kg, PRN Blood Glucose Results, Start date: 04/15/15 15:46:00, Duration: 30 day, Stop date: 05/15/15 15:45:00 No Longer Active 04/15/2015 [place] Acetaminophen 325 MG / Hydrocodone Bitartrate 5 MG Oral Tablet 1 tab, Route: PO, Drug Form: TAB, Dosing Weight 121.364, kg, Q4H, PRN Pain Score 1-3, Start date: 04/15/15 15:37:00, Duration: 30 day, Stop date: 05/15/15 15:36:00Notes: (Same as: [place] 325/5) Do not exceed 4gm/day of acetaminophen. No Longer Active 04/15/2015 [place] Acetaminophen 650 mg, 2 tab, Route: PO, Drug form: TAB, Q4H, Dosing Weight 121.364, kg, PRN Pain 1-3/Temp > 100.4 F, Start date: 04/15/15 15:37:00, Duration: 30 day, Stop date: 05/15/15 15:36:00Notes: Do not exceed 4 gm/day. (Same as: Tylenol) No Longer Active 04/15/2015 [place] Morphine 2 mg, 1 mL, Route: IVP, Drug form: INJ, Q4H, Dosing Weight 121.364, kg, PRN Pain Score 4-6, Start date: 04/15/15 15:37:00, Duration: 30 day, Stop date: 05/15/15 15:36:00Notes: (Same as:MORPhine Sulfate) No Longer Active 04/15/2015 [place] Ondansetron 4 mg, 2 mL, Route: IVP, Drug form: INJ, Q4H, Dosing Weight 121.364, kg, PRN Nausea & Vomiting, Start date: 04/15/15 15:37:00, Duration: 30 day, Stop date: 05/15/15 15:36:00Notes: (Same as: Brandy) MEDICATION WASTE Product Size: 4 mg Product Wasted: ___ mg No Longer Active 04/15/2015 [place] Saline Flush 0.9% 10 ml, Route: IVP, Drug Form: INJ, Dosing Weight 121.364, kg, PRN, PRN Line Flush, Start date: 04/15/15 15:37:00, Duration: 30 day, Stop date: 05/15/15 15:36:00Notes: (Same as: BD Posiflush) No Longer Active 04/15/2015 [place] Dilaudid 1 mg, 0.5 mL, Route: IV, Drug form: INJ, Q4H, Dosing Weight 120.909, kg, PRN Pain Score 7-10, Start date: 04/15/15 14:34:00, Duration: 30 day, Stop date: 05/15/15 14:33:00Notes: (Same as: Dilaudid) No Longer Active 04/15/2015 [place] Ondansetron 4 mg, 2 mL, Route: IVP, Drug form: INJ, Q8H, Dosing Weight 121.364, kg, PRN Nausea & Vomiting, Start date: 04/15/15 14:34:00, Duration: 30 day, Stop date: 05/15/15 14:33:00Notes: (Same as: Brandy) MEDICATION WASTE Product Size: 4 mg Product Wasted: ___ mg No Longer Active 04/15/2015 [place] Saline Flush 0.9% 10 ml, Route: IVP, Drug Form: INJ, Dosing Weight 121.364, kg, PRN, PRN Line Flush, Start date: 04/15/15 14:34:00, Duration: 30 day, Stop date: 05/15/15 14:33:00Notes: (Same as: BD Posiflush) No Longer Active 04/15/2015 [place] Sodium Chloride 0.154 MEQ/ML Injectable Solution 1,000 mL, Rate: 125 ml/hr, Infuse over: 8 hr, Route: IV, Dosing Weight 121.364 kg, Total Volume: 1,000, Start date: 04/15/15 14:34:00, Duration: 30 day, Stop date: 05/15/15 14:33:00 No Longer Active 04/15/2015 [place] Flomax 0.4 mg, 1 cap, Route: PO, Drug form: CAP, Daily, Dosing Weight 120.909, kg, Start date: 04/15/15 14:34:00, Duration: 30 day, Stop date: 05/15/15 9:00:00Notes: (Same As: Flomax) "Do Not Crush" No Longer Active 04/15/2015 [place] Hydromorphone 1 mg, Route: IVP, Drug form: INJ, ONCE, Dosing Weight 120.909, kg, Priority: STAT, Start date: 04/15/15 14:04:00, Stop date: 04/15/15 14:04:00 Inactive 04/15/2015 [place] Hydromorphone 1 mg, Route: IVP, Drug form: INJ, ONCE, Dosing Weight 120.909, kg, Priority: STAT, Start date: 04/15/15 10:23:00, Stop date: 04/15/15 10:23:00 Inactive 04/15/2015 [place] Morphine 4 mg, Route: IVP, ONCE, Dosing Weight 120.909, kg, Priority: STAT, Start date: 04/15/15 9:43:00, Stop date: 04/15/15 9:43:00 Inactive 04/15/2015 [place] Ondansetron 4 mg, 2 mL, Route: IVP, Drug form: INJ, ONCE, Dosing Weight 120.909, kg, Priority: STAT, Start date: 04/15/15 8:12:00, Stop date: 04/15/15 8:12:00Notes: (Same as: Brandy) MEDICATION WASTE P roduct Size: 4 mg Product Wasted: ___ mg Inactive 04/15/2015 [place] Saline Flush 0.9% 10 mL, Route: IVP, Drug Form: INJ, Dosing Weight 120.909, kg, PRN, PRN Line Flush, Start date: 04/15/15 8:12:00, Duration: 30 day, Stop date: 05/15/15 8:11:00Notes: (Same as: BD Posiflush) Inactive 04/15/2015 [place] Sodium Chloride 0.154 MEQ/ML Injectable Solution 1,000 mL, 1000 ml/hr, Infuse Over: 1 hr, Route: IV, 1,000, Drug form: INJ, ONCE, Priority: STAT, Dosing Weight 120.909 kg, Start date: 04/15/15 8:12:00, Duration: 1 doses or times, Stop date: 04/15/15 8:12:00 Inactive 04/15/2015 [place] Hydromorphone 1 mg, 0.5 mL, Route: IVP, Drug form: INJ, ONCE, Dosing Weight 120.909, kg, Priority: STAT, Start date: 04/15/15 8:12:00, Stop date: 04/15/15 8:12:00Notes: (Same as: Dilaudid) Inactive 04/15/2015 [place] LEVAQUIN 500 MG TABS 1 tablet PO daily for 7 days Active 02/17/2015 [facility] SINGULAIR 10 MG TABS 1 tablet PO daily at bedtime Active 02/17/2015 [facility] FLOMAX 0.4 MG CAPS 1 tablet PO daily for 5 days No Longer Active 02/17/2015 [facility] NAPROSYN 500 MG TABS 1 tablet PO BID PRN pain Active 02/17/2015 [facility] LEVAQUIN 500 MG TABS 1 tablet PO daily for 7 days No Longer Active 02/17/2015 [facility] NAPROSYN 500 MG TABS 1 tablet PO BID PRN pain Active 02/17/2015 [facility] AZITHROMYCIN 250 MG TABS 2 tablets PO today, then 1 tablet PO daily for days 2-5 No Longer Active 01/30/2015 [facility] CHERATUSSIN AC 100-10 MG/5ML SYRP 10 ml PO every 12 hours PRN cough Active 01/30/2015 [facility] PRAVASTATIN SODIUM 40 MG TABS 1 tablet by mouth once daily Active 03/26/2013 [facility] ROBAXIN-750 750 MG TAB 1 q6h prn spasm No Longer Active 03/26/2013 [facility] DICLOFENAC TAB 50MG EC i po tid prn pain No Longer Active 03/26/2013 [facility] Allergies, Adverse Reactions, Alerts Substance Category Reaction Severity Reaction type Status Date Reported Comments Source penicillin Assertion Drug allergy Active 09/25/2006 [facility] [place] PENICILLIN Drug allergy PENICILLIN [facility] Immunizations Immunization Date Given Site Status Last Updated Comments Source pneumococcal immunization administered 09/14/2011 completed [facility] Results Order Name Results Value Reference Range Date Interpretation Comments Source Abdomen AP DX Abdomen AP DX Abdomen one view, 01/10/2019 HISTORY: Renal calculi. Compared to CT urogram dated 08/09/2017. The previously described small bilateral renal calculi are not identified on abdomen film. Multiple phleboliths in the pelvis. Postoperative lumbar spinal fusion at L4-L5. The lung bases are clear. IMPRESSION: Small bilateral renal calculi noted on CT urogram dated 08/09/2017 are not seen on abdomen film. 01/10/2019 - - Read by: Evans Vila MD Dictated Date/time: 01/10/19 15:35 Electronically Signed by: Evans Vila MD 01/10/19 15:39 FINAL REPORT OPIJenny Bailey Elbow wo contrast MRI Elbow wo contrast MRI EXAMINATION: MR right elbow without contrast. HISTORY: RIGHT ELBOW PAIN (ICD-M25.521) - RIGHT ELBOW; AGE: 52 years GENDER: Male COMPARISON: There are no radiographs available for review. TECHNIQUE: Multiplanar, multisequence magnetic resonance imaging of the right elbow is performed with an extremity coil without contrast. Transverse, oblique coronal, and oblique sagittal images are obtained. FINDINGS: Ligaments: * Ulnar collateral ligament: Intact. * Radial collateral ligament: Intact. * Lateral ulnar collateral ligament: Intact. * Other ligaments and capsule: Intact. Muscles and Tendons: There is severe tendinosis of the common extensor tendon origin with high-grade interstitial tearing of the origin measuring 10 mm in AP dimension. The common flexor tendon origin is within normal limits.. There is normal muscle bulk and signal intensity of the musculature at the elbow. The distal biceps, brachialis, and triceps tendons are intact. Cartilage: The articular cartilage surfaces are normal. There are no osteocartilaginous joint bodies. Bone: There is normal bone marrow signal intensity without evidence of fracture or osteonecrosis. Other: The course and appearance of the ulnar nerve is normal. Mild scarring in the posterior medial soft tissues of the elbow overlying the cubital tunnel. IMPRESSION: 1. Severe tendinosis of the common extensor tendon origin with superimposed high- grade, 10 mm interstitial tear. 12/28/2017 - - Read by: Angel Fairchild MD Dictated Date/time: 12/28/17 13:22 Electronically Signed by: Angel Fairchild MD 12/28/17 13:28 FINAL REPORT [facility] [place] Abdomen/Pelvis w/wo IV contrast CT Abdomen/Pelvis w/wo IV contrast CT EXAM: CT ABDOMEN AND PELVIS WITHOUT AND WITH CONTRAST DATE: 08/09/2017 10:29 AM CDT INDICATION: - elevated post void residuals; nephrolithiasis COMPARISON: CT abdomen pelvis 04/14/2015, they will x-ray 06/30/2016, intravenous pyelogram 06/02/2015 TECHNIQUE: CT acquisition of the abdomen and pelvis before and after the intravenous administration contrast was performed. Coronal and sagittal reconstructions were performed. Further delayed images were performed. Oral contrast was not given. Total radiation dose DLP: 2134.67 mGy-cm. This exam was performed according to our departmental dose-optimization program which includes automated exposure control, adjustment of the mA and/or kV according to patient size and/or use of iterative reconstruction technique. FINDINGS: Lines, tubes and hardware: None. Lower thorax: Clear. Liver: Mild diffuse hepatic steatosis. Biliary tree: No intra- or extrahepatic biliary ductal dilation. Gallbladder: Cholelithiasis. Pancreas: Normal. Spleen: Normal. Adrenals: Normal. Kidneys and ureters: Prior calcification in mid pole of left kidney is no longer seen. Decreased size of a calcification in lower pole measuring 4 mm versus 6 cm. There is mild right perinephric stranding. Stable 2 mm calcification in the lower pole. No evidence of hydroureteronephrosis. The delayed images demonstrate nonopacification of the bilateral mid ureter and at the left uterovesical junction, likely due to peristalsis. Bladder: Mildly distended without evidence of wall thickening. Reproductive organs: The prostate gland is mildly enlarged in size measuring 5.0 x 2.8 cm. It is homogeneous in appearance. Gastrointestinal tract: Concentric rectal sigmoidal thickening, image 117 Appendix: Normal. Peritoneum and retroperitoneum: No ascites or free air. No other fluid collection. Lymph nodes: Normal. Vasculature: 2 bilateral mild atherosclerosis of the distal abdominal aorta and proximal iliac vessels. Renal arteries. Bones: Stable posterior spinal fusion at L4-L5. Soft tissues: Normal. IMPRESSION: 1. Decreased burden of nonobstructive left nephrolithiasis. Stable right tiny nonobstructive calculus. No evidence of hydronephrosis. 2. The bladder is mildly under distended without significant abnormality or calculi. 3. Concentric rectosigmoid thickening may be due to peristalsis. Correlation with screening colonoscopy is recommended. 4. Mild diffuse hepatic steatosis. 5. Cholelithiasis without evidence of cholecystitis. 08/09/2017 - - Read by: Telma Patel MD Dictated Date/time: 08/09/17 15:32 Electronically Signed by: Telma Patel MD 08/09/17 15:49 FINAL REPORT [facility] [place] CARDIAC ENZYMES Total CK 159 unit/L 12 - 191 10/05/2016 [place] CARDIAC ENZYMES CK MB 1.0 ng/mL 0.5 - 3.6 10/05/2016 [place] CARDIAC ENZYMES Troponin-I null 0.00 - 0.40 10/05/2016 [place] CARDIAC ENZYMES CK MB Index 0.6 0.0 - 2.5 10/05/2016 [place] CHEM PANEL Creatinine Lvl 1.20 mg/dL 0.50 - 1.40 10/05/2016 [place] CHEM PANEL Sodium Lvl 144 meq/L 135 - 145 10/05/2016 [place] [facility]M PANEL BUN 22 mg/dL 7 - 22 10/05/2016 [place] CHEM PANEL Glucose Lvl 126 mg/dL 70 - 99 10/05/2016 [place] CHEM PANEL Calcium Lvl 9.1 mg/dL 8.5 - 10.5 10/05/2016 [place] [facility] PANEL CO2 33 meq/L 24 - 32 10/05/2016 [place] CHEM PANEL eGFR 71 mL/min/1.73m2 10/05/2016 Result Comment: The eGFR is calculated using the CKD-EPI formula. In most young, healthy individuals the eGFR will be >90 mL/min/1.73m2. The eGFR declines with age. An eGFR of 60-89 may be normal in some populations, particularly the elderly, for whom the CKD-EPI formula has not been extensively validated. Use of the eGFR is not recommended in the following populations: Individuals with unstable creatinine concentrations, including patients and those with serious co-morbid conditions. Patients with extremes in muscle mass or diet. The data above are obtained from the National Kidney Disease Education Program (NKDEP) which additionally recommends that when the eGFR is used in patients with extremes of body mass index for purposes of drug dosing, the eGFR should be multiplied by the estimated BMI. [place] CHEM PANEL Alk Phos 76 unit/L 39 - 136 10/05/2016 [place] CHEM PANEL Bili Total 0.3 mg/dL 0.2 - 1.3 10/05/2016 [place] CHEM PANEL AGAP 11.9 meq/L 10.0 - 20.0 10/05/2016 [place] CHEM PANEL A/G Ratio 1.2 0.7 - 1.6 10/05/2016 [place] CHEM PANEL Globulin 3.3 g/dL 2.7 - 4.2 10/05/2016 [place] [facility]M PANEL Chloride Lvl 103 meq/L 95 - 109 10/05/2016 [place] CHEM PANEL AST 33 unit/L 0 - 37 10/05/2016 [place] CHEM PANEL Potassium Lvl 3.9 meq/L 3.5 - 5.1 10/05/2016 [place] CHEM PANEL Total Protein 7.2 g/dL 6.4 - 8.4 10/05/2016 [place] CHEM PANEL B/C Ratio 18 6 - 25 10/05/2016 [place] CHEM PANEL ALT 66 unit/L 0 - 65 10/05/2016 [place] CHEM PANEL Albumin Lvl 3.9 g/dL 3.5 - 5.0 10/05/2016 [place] HEMATOLOGY MPV 8.2 fL 7.4 - 10.4 10/05/2016 [place] HEMATOLOGY MCV 87.5 fL 80.0 - 94.0 10/05/2016 [place] HEMATOLOGY MCH 29.2 pg 27.0 - 31.0 10/05/2016 [place] HEMATOLOGY MCHC 33.4 g/dL 32.0 - 36.0 10/05/2016 [facility] HEMATOLOGY RBC 5.10 M/CMM 4.70 - 6.10 10/05/2016 [place] HEMATOLOGY WBC 7.5 K/CMM 3.7 - 10.4 10/05/2016 [place] HEMATOLOGY RDW 15.1 % 11.5 - 14.5 10/05/2016 [place] HEMATOLOGY Platelet 212 K/CMM 133 - 450 10/05/2016 [place] HEMATOLOGY Hct 44.6 % 42.0 - 54.0 10/05/2016 [place] HEMATOLOGY Hgb 14.9 g/dL 14.0 - 18.0 10/05/2016 [place] HEMATOLOGY Basophils 0.7 % 0.0 - 1.0 10/05/2016 [place] HEMATOLOGY Monocytes # 0.9 K/CMM 0.0 - 0.8 10/05/2016 [place] HEMATOLOGY Segs-Bands # 3.4 K/CMM 1.5 - 8.1 10/05/2016 [place] HEMATOLOGY Lymphocytes # 3.1 K/CMM 1.0 - 5.5 10/05/2016 [place] HEMATOLOGY Eosinophils 1.4 % 0.0 - 4.0 10/05/2016 [place] HEMATOLOGY Eosinophils # 0.1 K/CMM 0.0 - 0.5 10/05/2016 [place] HEMATOLOGY Basophils # 0.1 K/CMM 0.0 - 0.2 10/05/2016 [place] HEMATOLOGY Lymphocytes 41.1 % 20.0 - 40.0 10/05/2016 [place] HEMATOLOGY Segs 44.8 % 45.0 - 75.0 10/05/2016 [place] HEMATOLOGY Monocytes 12.0 % 2.0 - 12.0 10/05/2016 [facility] Chest 1view DX Chest 1view DX Clinical History : , Pain Post Trauma Exam : Portable AP view of the chest 10/04/2016 10:19 PM J[employer] 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 The heart is normal in size. The mediastinal contours are normal in appearance. The thoracic spine is age appropriate. The shoulders are unremarkable. There is surgical hardware in the lower cervical spine anteriorly. Limited evaluation of the upper abdomen demonstrates no gross abnormalities. Impression: No acute cardiopulmonary disease 10/04/2016 - - Read by: Ava Andrade MD Dictated Date/time: 10/04/16 22:38 Electronically Signed by: Ava Andrade MD 10/04/16 22:39 FINAL REPORT [facility] Abdomen AP DX Abdomen AP DX Exam: Abdomen one view : History: calculus of kidney. Comparison Study: 08/06/2015. Findings: AP supine view of the abdomen demonstrates a nonspecific bowel gas pattern. There is no evidence of organomegaly. There is no evidence of radiopaque calculi or calcifications . Postsurgical changes are seen in the lower lumbar spine with presence of pedicle screws and evidence of prior disc fusion at L4-L5. Several pelvic phleboliths are noted.. Impression: Nonspecific bowel gas pattern . 06/30/2016 - - Read by: Micki Edwards MD Dictated Date/time: 06/30/16 14:47 Electronically Signed by: Micki Edwards MD 06/30/16 14:48 FINAL REPORT OPIJenny [place] Abdomen AP DX Abdomen AP DX Examination: Abdomen 1 view Provided History: kidneystone DIAGNOSIS: No diagnostic soft tissue pattern is identified on single flatplate of the abdomen. DISCUSSION: Radiographic exam of the abdomen demonstrates no specific diagnostic pattern of the soft tissues. No obvious mechanical obstruction is evident. No abnormal calcification showing a diagnostic pattern is evident. No clear mass is defined. Scattered vascular calcification is present. Two radiopaque calculi that projected within the left kidney on prior studies of 27 July 2014 are no longer visualized. Phleboliths in the pelvis are evident. 08/06/2015 - - Read by: Leonard Venegas MD Dictated Date/time: 08/06/15 09:02 Electronically Signed by: Leonard Venegas MD 08/06/15 09:04 FINAL REPORT IRVIN [facility] Abdomen AP DX Abdomen AP DX Abdomen one view, 07/27/2015 HISTORY: Renal calculi. Compared to prior exam dated 06/02/2015. Stable 6 mm left upper pole and 9 mm left lower pole renal calculi, unchanged in size or position. Postop lower lumbar spinal fusion. Comparison to prior exam demonstrates no new finding or change. 07/27/2015 - - Read by: Evans Vila MD Dictated Date/time: 07/27/15 09:23 Electronically Signed by: Evans Vila MD 07/27/15 09:26 FINAL REPORT IRVIN Bailey Intravenous Pyelogram DX Intravenous Pyelogram DX Examination: Kidney IVP History: ureteral calculus DIAGNOSIS: 1. Left nephrolithiasis 2. The ureters are unobstructed. 3. The bladder shows no significant postvoid residual contrast. 4. Resolution of a previous noted distal right ureteral stone DISCUSSION: The exam is correlated with recent CT scanning dated 15 April 2015. Preliminary film and tomography demonstrates left nephrolithiasis. There is a 3 mm noncalcified stone in the superior left kidney and a somewhat larger 6 mm stone projecting in the lower pole of the left kidney. Postoperative changes in the lumbar spine. A small radiodensity projects on the lateral margin of the transverse process of L3 on the left, which is shown to be outside the ureter, and represents bony sclerosis of the left transverse process. 100 cc of Omnipaque was used intravenously. Excretory urography demonstrates prompt function and excretion without evidence of obstruction. No evidence of a mass in the kidneys is identified. The ureters are normal in course and caliber. A previously noted stone at the right ureterovesicular junction, on CT scan of April 15, 2015, is not identified at this time. The bladder is unremarkable with no significant postvoiding residual contrast. 06/02/2015 - - Read by: Leonard Venegas MD Dictated Date/time: 06/02/15 11:37 Electronically Signed by: Leonard Venegas MD 06/02/15 11:43 FINAL REPORT [facility] Chemistry URIC ACID 5.4 mg/dL 3.8 - 8.0 05/29/2015 [facility] Chemistry BUN 18 mg/dL 7 - 22 05/29/2015 [facility] Chemistry CREATININE 1.1 mg/dL 0.5 - 1.4 05/29/2015 [facility] Chemistry SODIUM 139 MEQ/L mmol/L 135 - 145 05/29/2015 [facility] Chemistry POTASSIUM 4.1 MEQ/L mmol/L 3.5 - 5.1 05/29/2015 [facility] Chemistry CALCIUM 9.2 mg/dL 8.5 - 10.5 05/29/2015 [facility] Chemistry PTH, INTACT 42.3 pg/mL 11.1 - 79.5 05/29/2015 [facility] Retroperitoneal limited US Retroperitoneal limited US Examination: Renal US History: Renal insufficiency DIAGNOSIS : 1. Resolution of right-sided hydronephrosis. 2. The previously identified left renal stone on CT scanning one day earlier is not clearly identified at this time. 3. Probable small right renal stone evident. DISCUSSION: Sonography of the kidneys and retroperitoneum was performed. There is no evidence of a solid renal mass or hydronephrosis. There is a probable small 2 mm minor calyceal stone in the right kidney. No evidence of perinephric edema. The bladder was not imaged per request. Measurements: Right Kidney: 12.9 x 7.2 x 6.9 cm. Left Kidney: 12.4 x 6.1 x 5.9 cm. 04/16/2015 - - Read by: Leonard Venegas MD Dictated Date/time: 04/16/15 15:19 Electronically Signed by: Leonard Venegas MD 04/16/15 15:54 FINAL REPORT [place] Fluoroscopy assist to 1 hour DX Fluoroscopy assist to 1 hour DX _See report below. No report is required for this exam. Technical component complete. Dose report sent to PACS. 04/16/2015 - - Electronically Signed by: Hillary Dillard, 04/22/15 15:37 FINAL REPORT - - Electronically Signed by: Hillary Dillard, RT 04/22/15 15:36 FINAL REPORT [place] CHEM PANEL Calcium Lvl 8.6 mg/dL 8.5 - 10.5 04/16/2015 [place] CHEM PANEL eGFR 50 mL/min/1.73m2 04/16/2015 1Result Comment: The eGFR is calculated using the CKD-EPI formula. In most young, healthy individuals the eGFR will be >90 mL/min/1.73m2. The eGFR declines with age. An eGFR of 60-89 may be normal in some populations, particularly the elderly, for whom the CKD-EPI formula has not been extensively validated. Use of the eGFR is not recommended in the following populations: Individuals with unstable creatinine concentrations, including patients and those with serious co-morbid conditions. Patients with extremes in muscle mass or diet. The data above are obtained from the National Kidney Disease Education Program (NKDEP) which additionally recommends that when the eGFR is used in patients with extremes of body mass index for purposes of drug dosing, the eGFR should be multiplied by the estimated BMI. [place] CHEM PANEL Glucose Lvl 135 mg/dL 70 - 99 04/16/2015 3Interpretive Data: Adult reference range values reflect the clinical guidelines of the [place] [employer]. [place] CHEM PANEL BUN 16 mg/dL 7 - 22 04/16/2015 [place] CHEM PANEL Potassium Lvl 3.8 meq/L 3.5 - 5.1 04/16/2015 [place] CHEM PANEL AGAP 14.8 meq/L 10.0 - 20.0 04/16/2015 [place] CHEM PANEL CO2 25 meq/L 24 - 32 04/16/2015 [place] CHEM PANEL Chloride Lvl 102 meq/L 95 - 109 04/16/2015 [place] CHEM PANEL Sodium Lvl 138 meq/L 135 - 145 04/16/2015 [place] CHEM PANEL Creatinine Lvl 1.6 mg/dL 0.5 - 1.4 04/16/2015 [place] CHEM PANEL Magnesium Lvl 1.8 mg/dL 1.8 - 2.4 04/16/2015 [place] HEMATOLOGY Eosinophils # 0.0 K/CMM 0.0 - 0.5 04/16/2015 [facility] HEMATOLOGY Monocytes # 1.1 K/CMM 0.0 - 0.8 04/16/2015 [place] HEMATOLOGY Basophils # 0.1 K/CMM 0.0 - 0.2 04/16/2015 [place] HEMATOLOGY Monocytes 10.3 % 2.0 - 12.0 04/16/2015 [place] HEMATOLOGY Lymphocytes 15.5 % 20.0 - 40.0 04/16/2015 [place] HEMATOLOGY Segs 73.4 % 45.0 - 75.0 04/16/2015 [place] HEMATOLOGY Lymphocytes # 1.7 K/CMM 1.0 - 5.5 04/16/2015 [place] HEMATOLOGY Segs-Bands # 7.9 K/CMM 1.5 - 8.1 04/16/2015 [place] HEMATOLOGY Basophils 0.5 % 0.0 - 1.0 04/16/2015 [place] HEMATOLOGY Eosinophils 0.3 % 0.0 - 4.0 04/16/2015 [place] HEMATOLOGY MPV 8.3 fL 7.4 - 10.4 04/16/2015 [place] HEMATOLOGY Hgb 14.7 g/dL 14.0 - 18.0 04/16/2015 [place] HEMATOLOGY Hct 44.3 % 42.0 - 54.0 04/16/2015 [place] HEMATOLOGY RDW 13.6 % 11.5 - 14.5 04/16/2015 [place] HEMATOLOGY WBC 10.8 K/CMM 3.7 - 10.4 04/16/2015 [place] HEMATOLOGY MCHC 33.2 g/dL 32.0 - 36.0 04/16/2015 [place] HEMATOLOGY Platelet 191 K/CMM 133 - 450 04/16/2015 [place] HEMATOLOGY MCV 89.4 fL 80.0 - 94.0 04/16/2015 [place] HEMATOLOGY MCH 29.7 pg 27.0 - 31.0 04/16/2015 [place] HEMATOLOGY RBC 4.95 M/CMM 4.70 - 6.10 04/16/2015 [place] SPECIAL CHEMISTRY Hgb A1C 8.1 % <=5.6 % 04/15/2015 [place] CHEM PANEL Amylase Lvl 69 unit/L 25 - 115 04/15/2015 [place] [facility] PAN[facility] B/C Ratio 14 6 - 25 04/15/2015 [place] CHEM PANEL AGAP 11.5 meq/L 10.0 - 20.0 04/15/2015 [place] CHEM PANEL A/G Ratio 1.2 0.7 - 1.6 04/15/2015 [place] CHEM PANEL Globulin 3.4 g/dL 2.0 - 4.0 04/15/2015 [place] CHEM PANEL eGFR 54 mL/min/1.73m2 04/15/2015 2Result Comment: The eGFR is calculated using the CKD-EPI formula. In most young, healthy individuals the eGFR will be >90 mL/min/1.73m2. The eGFR declines with age. An eGFR of 60-89 may be normal in some populations, particularly the elderly, for whom the CKD-EPI formula has not been extensively validated. Use of the eGFR is not recommended in the following populations: Individuals with unstable creatinine concentrations, including patients and those with serious co-morbid conditions. Patients with extremes in muscle mass or diet. The data above are obtained from the National Kidney Disease Education Program (NKDEP) which additionally recommends that when the eGFR is used in patients with extremes of body mass index for purposes of drug dosing, the eGFR should be multiplied by the estimated BMI. [place] CHEM PANEL Albumin Lvl 4.0 g/dL 3.5 - 5.0 04/15/2015 [place] CHEM PANEL Bili Total 0.4 mg/dL 0.2 - 1.3 04/15/2015 [place] CHEM PANEL Total Protein 7.4 g/dL 6.4 - 8.4 04/15/2015 [place] CHEM PANEL ALT 68 unit/L 0 - 65 04/15/2015 [facility] CHE[facility] PANEL AST 37 unit/L 0 - 37 04/15/2015 [place] CHEM PANEL Alk Phos 84 unit/L 39 - 136 04/15/2015 [place] CHEM PANEL Calcium Lvl 8.9 mg/dL 8.5 - 10.5 04/15/2015 [place] CHEM PANEL Sodium Lvl 133 meq/L 135 - 145 04/15/2015 [place] CHEM PANEL Potassium Lvl 3.5 meq/L 3.5 - 5.1 04/15/2015 [place] CHEM PANEL Chloride Lvl 98 meq/L 95 - 109 04/15/2015 [place] CHEM PANEL CO2 27 meq/L 24 - 32 04/15/2015 [place] CHEM PANEL Glucose Lvl 216 mg/dL 70 - 99 04/15/2015 4Interpretive Data: Adult reference range values reflect the clinical guidelines of the [place] [employer]. [place] CHEM PANEL BUN 21 mg/dL 7 - 22 04/15/2015 [place] CHEM PANEL Creatinine Lvl 1.5 mg/dL 0.5 - 1.4 04/15/2015 [place] CHEM PANEL Lipase Lvl 216 unit/L 73 - 393 04/15/2015 [place] HEMATOLOGY MCH 30.1 pg 27.0 - 31.0 04/15/2015 [place] HEMATOLOGY MCHC 33.5 g/dL 32.0 - 36.0 04/15/2015 [place] HEMATOLOGY MPV 8.2 fL 7.4 - 10.4 04/15/2015 [place] HEMATOLOGY MCV 89.8 fL 80.0 - 94.0 04/15/2015 [place] HEMATOLOGY RDW 13.9 % 11.5 - 14.5 04/15/2015 [place] HEMATOLOGY Platelet 224 K/CMM 133 - 450 04/15/2015 [place] HEMATOLOGY RBC 4.97 M/CMM 4.70 - 6.10 04/15/2015 [place] HEMATOLOGY Hgb 14.9 g/dL 14.0 - 18.0 04/15/2015 [place] HEMATOLOGY Hct 44.6 % 42.0 - 54.0 04/15/2015 [place] HEMATOLOGY WBC 11.5 K/CMM 3.7 - 10.4 04/15/2015 [place] HEMATOLOGY Atypical Lymphs 0.0 % <=0.0 % 04/15/2015 [place] HEMATOLOGY Monocytes 6.0 % 2.0 - 12.0 04/15/2015 [place] HEMATOLOGY Eosinophils 1.0 % 0.0 - 4.0 04/15/2015 [place] HEMATOLOGY Lymphocytes 11.0 % 20.0 - 40.0 04/15/2015 [facility] HEMAT[facility] Tot Cell Ct 100 04/15/2015 [place] HEMAT[facility] RBC Morph Normal (04/15/15 8:18 AM) 04/15/2015 [place] HEMATOLOG[facility] Plt Morph Normal (04/15/15 8:18 AM) 04/15/2015 [facility] HEMATOLOGY Lymphocytes # 1.3 K/CMM 1.0 - 5.5 04/15/2015 [place] HEMATOLOGY Segs-Bands # 9.4 K/CMM 1.5 - 8.1 04/15/2015 [place] HEMATOLOGY Segs 77.0 % 45.0 - 75.0 04/15/2015 [place] HEMATOLOGY Bands 5.0 % 0.0 - 11.0 04/15/2015 [place] HEMATOLOGY Monocytes # 0.7 K/CMM 0.0 - 0.8 04/15/2015 [place] HEMATOLOGY Eosinophils # 0.1 K/CMM 0.0 - 0.5 04/15/2015 [place] URINE AND STOOL UA Bacteria None Seen (04/15/15 8:18 AM) None Seen 04/15/2015 [place]INE [facility] STO[facility] UA RBC 3-5 /HPF 0 - 2 04/15/2015 [place]INE [facility] STOOL UA Leuk Est Negative (04/15/15 8:18 AM) Negative 04/15/2015 [place]INE [facility] STOOL UA Nitrite Negative (04/15/15 8:18 AM) Negative 04/15/2015 [place] STO[facility] UA Sq Epi Rare /LPF Few /LPF 04/15/2015 [place] STOOL UA Bili Negative *NA* (04/15/15 8:18 AM) Negative 04/15/2015 [place]INE AND STOOL UA Urobilinogen 0.2 EU/dL 0.1 - 1.0 04/15/2015 [place] STOOL UA Blood Moderate *ABN* (04/15/15 8:18 AM) Negative 04/15/2015 [place] URINE AND STOOL UA Glucose >=1000 mg/dL Negative mg/dL 04/15/2015 [place] [facility]INE AND STOOL UA Protein Negative (04/15/15 8:18 AM) Negative 04/15/2015 [place] URINE AND STOOL UA WBC 0-2 /HPF None Seen /HPF 04/15/2015 [place]INE [facility] STOOL UA Ketones Trace *ABN* (04/15/15 8:18 AM) Negative 04/15/2015 [place] URINE AND STOOL UA pH 5.0 5.0 - 8.0 04/15/2015 [place]INE [facility] STOOL UA Spec Grav 1.020 <=1.030 04/15/2015 [place]INE [facility] STOOL UA Turbidity Clear (04/15/15 8:18 AM) Clear 04/15/2015 [place] URINE AND STOOL UA Color Yellow *NA* (04/15/15 8:18 AM) Yellow 04/15/2015 [place] Vital Signs Vital Sign Value Date Comments Source BMI Calculated 35.26 01/10/2019 [facility] Weight 111.477 01/10/2019 [facility] Height 177.8 cm 01/10/2019 [facility] Temperature Oral (F) 98.7 F 01/10/2019 [facility] Heart Rate 84 01/10/2019 [facility] Systolic (mm Hg) 144 01/10/2019 [facility] Diastolic (mm Hg) 78 01/10/2019 [facility] Heart Rate 76 10/05/2016 [place] Temperature Oral (F) 97.7 F 10/05/2016 [facility] Respitory Rate 18 10/05/2016 [place] Systolic (mm Hg) 122 10/05/2016 [place] Diastolic (mm Hg) 76 10/05/2016 [place] Systolic (mm Hg) 113 10/05/2016 [place] Diastolic (mm Hg) 57 10/05/2016 [place] Heart Rate 73 10/05/2016 [facility] Respitory Rate 18 10/05/2016 [facility] Respitory Rate 20 10/05/2016 [facility] Temperature Oral (F) 98.1 F 10/05/2016 [facility] Weight 118.182 10/05/2016 [place] Systolic (mm Hg) 129 10/05/2016 [place] Diastolic (mm Hg) 81 10/05/2016 [place] Heart Rate 86 10/05/2016 [place] Weight 262.13 04/24/2015 [facility] Heart Rate 90 04/24/2015 [facility] Systolic (mm Hg) 120 04/24/2015 [facility] Diastolic (mm Hg) 81 04/24/2015 [facility] Heart Rate 92 04/16/2015 [place] Respitory Rate 18 04/16/2015 [facility] Systolic (mm Hg) 130 04/16/2015 [facility] Diastolic (mm Hg) 71 04/16/2015 [facility] Temperature Oral (F) 98.9 F 04/16/2015 [facility] Temperature Oral (F) 98.2 F 04/16/2015 [facility] Respitory Rate 18 04/16/2015 [place] Systolic (mm Hg) 116 04/16/2015 [place] Diastolic (mm Hg) 72 04/16/2015 [facility] Heart Rate 82 04/16/2015 [facility] Respitory Rate 18 04/16/2015 [place] Heart Rate 67 04/16/2015 [facility] Temperature Oral (F) 97.8 F 04/16/2015 [place] Systolic (mm Hg) 116 04/16/2015 [place] Diastolic (mm Hg) 74 04/16/2015 [facility] Weight 121.364 04/15/2015 [facility] BMI Calculated 38.39 04/15/2015 [facility] Height 177.8 cm 04/15/2015 [facility] Weight 120.909 04/15/2015 [facility] BMI Calculated 38.25 04/15/2015 [facility] Height 177.8 cm 04/15/2015 [facility] Weight 275 02/17/2015 [facility] Temperature Oral (F) 98.6 F 02/17/2015 [facility] Heart Rate 92 02/17/2015 [facility] Systolic (mm Hg) 139 02/17/2015 [facility] Diastolic (mm Hg) 92 02/17/2015 [facility] Respitory Rate 16 02/17/2015 [facility] Weight 275 01/30/2015 [facility] Temperature Oral (F) 98.2 F 01/30/2015 [facility] Heart Rate 80 01/30/2015 [facility] Respitory Rate 16 01/30/2015 [facility] Systolic (mm Hg) 110 01/30/2015 [facility] Diastolic (mm Hg) 80 01/30/2015 [facility] Height 69 03/26/2013 [facility] Weight 250.4 03/26/2013 [facility] Temperature Oral (F) 98.6 F 03/26/2013 [facility] Heart Rate 60 03/26/2013 [facility] Systolic (mm Hg) 140 03/26/2013 [facility] Diastolic (mm Hg) 72 03/26/2013 [facility] Respitory Rate 20 03/26/2013 [facility] Encounters Location Location Details Encounter Type Encounter Number Reason For Visit Attending Provider ADM Date DC Date Status Source [facility] Office Visit [id number] Shyanne Villegas, PILL MAKER 01/30/2015 01/30/2015 Medical [facility] Lab Report [id number] Shyanne Villegas, PILL MAKER 02/17/2015 02/17/2015 Medical [facility] [place] OBS Observation Patient [id number] Marley Medrano 04/15/2015 04/16/2015 [place] [facility] Urology Lab Report [id number] Paola Starr MD 05/29/2015 05/29/2015 Medical [facility] [facility] ([facility]) Urology Lab Report [id number] Paola Starr MD 06/01/2015 06/01/2015 Medical Group [facility] Outpatient Imaging [place] [facility] [id number] Paola Starr 06/02/2015 06/03/2015 [facility] [place] Outpatient [id number] PAOLA STARR 06/12/2015 Active [facility] Outpatient Imaging [place] [facility] [id number] Paola Starr 07/27/2015 07/28/2015 [facility] [place] Out[facility] [id number] SOFIA TEYKL 07/29/[address] [facility] Outpatient [id number] SOFIA TEYKL 08/06/2015 Active [facility] Outpatient [facility] [place] [facility] [id number] Paola Starr 08/06/2015 08/07/2015 [facility] [place] Out[facility] [id number] PAOLA STARR 09/16/[address] [facility] Outpatient [id number] SOFIA TEYKL 10/02/2015 Active [facility] Outpatient [facility] [place] [facility] [id number] Paola Starr 06/30/2016 07/01/2016 [facility] [place] Outpatient [id number] SOFIA TEYKL 08/10/[address] [facility] Outpatient [id number] SOFIA SISSYYKL 09/01/2016 Active [facility] [place] Emergency [id number] Ozzie Garza 10/05/2016 10/05/2016 [facility] [place] Outpatient [id number] SOFIA SISSYYKL 03/16/[address] [facility] Outpatient [id number] ALIZA ALMITA 07/06/2017 Active [facility] Outpatient [facility] [place] [facility] [id number] Aliza Zimmer 08/09/2017 08/10/2017 MH [facility] [place] Outpatient [id number] ALIZAJUNE RADFORDES 08/16/2017 Active [facility] Urology [place] [facility] Phone Message [id number] 11/27/2017 11/29/2017 Medical Group [facility] Outpatient Imaging [place] [facility] [id number] Leonard Grey 12/28/2017 12/29/2017 [facility] [place] [facility] [place] [facility] Phone Message [id number] 12/13/2018 12/15/2018 [facility] Outpatient [id number] SOFIA TEYKL 12/14/2018 [facility] [place] [facility] Ambulatory Pre-Reg [id number] Sofia Teykl 12/14/2018 12/14/2018 [facility] Outpatient [id number] PAOLA MUCHRAYSHAWN 12/27/2018 [facility] [place] [facility] Ambulatory Pre-Reg [id number] Paola Muchrayshawn 12/27/2018 12/27/2018 [facility] Outpatient [id number] PAOLA MUCHER 01/10/2019 Active [facility] Urology [place] [facility] Outpatient [id number] Paola Mucher 01/10/2019 01/11/2019 Medical Group [facility] Outpatient [facility] [place] [facility] [id number] Sofia Teykl 01/10/2019 01/11/2019 [facility] [place] [facility] [place] [facility] Between Visit [id number] 01/11/2019 01/12/2019 Medical Group [facility] Urology [facility] Between Visit [id number] 01/11/2019 01/12/2019 Medical [facility] Urology [facility] Between Visit [id number] 01/11/2019 01/12/2019 Medical [facility] Outpatient [id number] PAOLA STARR 07/11/[address] [facility] Procedures Procedure Code Date Perfomer Comments Source Measurement of post-voiding residual urine and/or bladder capacity by ultrasound, non-imaging 47527 01/10/2019 Medical [facility] Cystoscopy<sup>1</sup> [id number] 04/16/2015 Cystoscopy under anesthesia, urethral dilation, right ureteroscopy, laser lithotripsy and basket extraction of stone,and right ureteral stent placement. [facility] Cystoscopy<sup>1</sup> [id number] 04/16/2015 Cystoscopy under anesthesia, urethral dilation, right ureteroscopy, laser lithotripsy and basket extraction of stone,and right ureteral stent placement. [facility] Cystoscopy<sup>1</sup> [id number] 04/16/2015 Cystoscopy under anesthesia, urethral dilation, right ureteroscopy, laser lithotripsy and basket extraction of stone,and right ureteral stent placement. [facility] Lumbar [id number] [facility] Miscellaneous operations<sup>2</sup> [id number] Orhto: knees,elbows,lumbar and cervical spine [facility] Lumbar [id number] [facility] Miscellaneous operations<sup>2</sup> [id number] Orhto: knees,elbows,lumbar and cervical spine [facility] Lumbar [id number] [facility] Miscellaneous operations<sup>2</sup> [id number] Orhto: knees,elbows,lumbar and cervical spine [facility]
--- OUTSIDE RECORDS SUMMARY | 2019-01-28 06:46 | XMS REPORT | Summary of Care ---
Author Author [facility] [place] Organization [facility] [place] Address Unknown Phone Unavailable Encounter LUC Villalba(JF) [id number] Date(s): 01/10/19 - 01/10/19 [facility] [place] [address] [address]- Discharge Disposition: Home or Self Care Attending Physician: Sofia Frausto MSN, RN, CLAIMS TECHNICIAN-C Referring Physician: Sofia Frausto MSN, RN, CLAIMS TECHNICIAN-C Vital Signs No data available for this [...]
--- OUTSIDE RECORDS SUMMARY | 2019-01-28 06:46 | XMS REPORT | Continuity of Care Document ---
Author Author [facility] Organization [facility] Address Unknown Phone Unavailable Care Team Providers Care Manager Primary Care Name Role Phone JUAN ANTONIO Villegas Britt PP Unavailable Insurance Providers Payer name Policy type / Coverage type Policy ID Covered constitution party ID Policy [place] [facility] [id number] [employer]ETNA (PPO) [employer] SERVICE BENEFIT P AETNA (PPO) AETNA (PPO) AETNA (PPO) AETNA (PPO) AETNA (PPO) AETNA (PPO) AETNA (PPO) Encounters Encounter Performer Location Date Lab Report Shyanne Villegas APRN [facility] Feb 17, 2015 Allergies, Adverse Reactions, Alerts Type Substance Reaction Status Drug allergy PENICILLIN Active Problems Problem Effective Dates Problem Status DIABETES MELLITUS Active HYPERLIPIDEMIA Active BACK PAIN March 26, 2013 Active SCIATICA, LEFT March 26, 2013 Active BRONCHITIS, ACUTE Jan 30, 2015 Active KIDNEY STONE Feb 17, 2015 Active Procedures Date Description Comments March [...] daily for 7 days Feb 17, 2015 Active SINGULAIR 10 MG TABS 1 tablet PO daily at bedtime Feb 17, 2015 Active FLOMAX 0.4 MG CAPS 1 tablet PO daily for 5 days Feb 17, 2015 Active NAPROSYN 500 MG TABS 1 tablet PO BID PRN pain Feb 17, 2015 Active Immunizations Vaccine Date Status pneumococcal immunization administered Sep 14, 2011 completed Vital Signs Date Description Test Result March 26, 2013 height E&M - 8302-2 HEIGHT 69 in March 26, 2013 weight Shakir&Aristeo - 3141-9 WEIGHT 250.4 lb March 26, [...] RATE 20 /min Jan 30, 2015 weight Victoriano - 3141-9 WEIGHT 275 lb Jan 30, [...] 80 mm Hg Feb 17, 2015 weight Shakir&Aristeo - 3141-9 WEIGHT 275 lb Feb 17, [...]
--- OUTSIDE RECORDS SUMMARY | 2019-01-28 06:46 | XMS REPORT | Summary of Care ---
Author Author [facility] [place] Organization [facility] [place] Address Unknown Phone Unavailable Encounter LUC Villalba(JF) [id number] Date(s): 08/09/17 - 08/09/17 [facility] [place] [address] [address]- Discharge Disposition: Home or Self Care Attending Physician: Silver Zimmer MD Vital Signs No data available for this section Problem List Condition Effective Dates Status Health Status Informant Acute bronchitis1, 2 01/30/15 Active DM - Diabetes Resolved mellitus(Confirmed) Hyperlipidemia(Confi Resolved rmed) Kidney stone3 02/17/15 Active Kidney stone4 02/17/15 Active Obesity(Confirmed) Active Ureteric stone5 04/24/15 Active 1Data migrated from [employer] on 05/20/15. 2Data migrated from [employer] on 04/14/15. 3Data migrated from [employer] on 04/14/15. 4Data migrated from [employer] on 05/20/15. 5Data migrated from [employer] on 05/20/15. Allergies, Adverse Reactions, Alerts Substance Reaction Severity Status penicillin Active Medications No data available for this section Results No data available for this section Immunizations No data available for this section Procedures Procedure Date Related Diagnosis Body Site Cystoscopy1 04/16/15 Lumbar Miscellaneous operations2 1Cystoscopy under anesthesia, urethral dilation, right ureteroscopy, [...] Days No; Reg Smoking Cessation Counseling No Assessment and Plan No data available for this section
--- OUTSIDE RECORDS SUMMARY | 2019-01-28 06:46 | XMS REPORT | Summary of Care ---
Author Author [facility] Organization [facility] Address Unknown Phone Unavailable Encounter HQ Orly(FIN) [id number] Date(s): 11/27/17 - 11/28/17 [facility] [address] [place] [address] Vital Signs No data available [...] Substance Reaction Severity Status penicillin Active Medications hydrochlorothiazide 25 mg oral tablet See Instructions, # 90 tab, Refill(s) 2, TAKE 1 TABLET DAILY, Pharmacy: [facility] Start Date: 11/29/17 Status: Ordered potassium citrate 15 mEq oral tablet, extended release 15 mEq=1 tab, PO, BID, # 180 tab, 2 Refill(s), Pharmacy: [facility] Start Date: 11/29/17 Stop Date: 02/27/18 Status: Ordered Results No data available for [...] Reg Smoking Cessation Counseling No entered on: 07/06/17 Assessment and Plan No data available for this section
--- OUTSIDE RECORDS SUMMARY | 2019-01-28 06:46 | XMS REPORT | Continuity of Care Document ---
Author Author [facility] Address Unknown Phone Unavailable Care Team Providers Care Regional Marketing Director Name Role Phone MD Matty, Yoav GONSALVES Unavailable Insurance Providers Payer name Policy type / Coverage type Policy ID Covered alliance party ID Policy [place] [facility] [id number] AETNA (PPO) [employer] - [employer] BENEFIT P AETNA (PPO) AETNA (PPO) AETNA (PPO) AETNA (PPO) AETNA (PPO) AETNA (PPO) AETNA (PPO) AETNA (PPO) COUNT INCLUDES THE [facility] - AETNA - FOREIGN SERVI AETNA (PPO) AETNA (PPO) AETNA (PPO) AETNA (PPO) [employer] - [employer] [employer] BENEFIT P AETNA (PPO) [employer] - [place] [employer] BENEFIT P AETNA (PPO) [employer] - [place] [employer] BENEFIT P AETNA (PPO) COUNT INCLUDES THE [facility] - AETNA - FOREIGN SERVI [employer] - [place] [employer] BENEFIT P AETNA (PPO) COUNT INCLUDES THE [facility] - AETNA - FOREIGN SERVI MEDCOST [...] Location Date Lab Report Yoav Starr MD [facility]) Urology Jun 01, 2015 Allergies, Adverse Reactions, Alerts Type Substance [...] 2015 urea nitrogen, blood BUN 18 mg/dL 7-22 May 29, 2015 creatinine, serum CREATININE 1.1 mg/dL 0.5-1.4 May 29, 2015 sodium, serum SODIUM 139 MEQ/L mmol/L 135-145 May 29, 2015 potassium, serum POTASSIUM 4.1 MEQ/L mmol/L 3.5-5.1 May 29, 2015 calcium, serum CALCIUM 9.2 mg/dL 8.5-10.5 May 29, 2015 parathormone, serum PTH, INTACT 42.3 pg/mL 11.1-79.5
--- OUTSIDE RECORDS SUMMARY | 2019-01-28 06:46 | XMS REPORT | Summary of Care ---
Author Author [facility] Organization [facility] Address Unknown Phone Unavailable Encounter LUC Villalba(FIN) [id number] Date(s): 01/11/19 - 01/12/19 [facility] [address] [place] [address] Vital Signs No data available [...]
--- OUTSIDE RECORDS SUMMARY | 2019-01-28 06:47 | XMS REPORT | Summary of Care ---
Author Author [facility] [place] [facility] [place] Address Unknown Phone Unavailable Encounter LUC Villalba(JF) [id number] Date(s): 08/06/15 - 08/06/15 [facility] [place] [address] Discharge Disposition: Home Attending Physician: Yoav Starr MD Vital Signs No data available for this section Problem List Condition Effective Dates Status Health Status Informant Acute bronchitis1, 2 01/30/15 Active DM - Diabetes Resolved mellitus(Confirmed) Hyperlipidemia(Confi Resolved rmed) Kidney stone3 02/17/15 Active Kidney stone4 02/17/15 Active Ureteric stone5 04/24/15 Active 1Data migrated [...]
--- OUTSIDE RECORDS SUMMARY | 2019-01-28 06:47 | XMS REPORT | Summary of Care ---
Author Author [facility] Address Unknown Phone Unavailable Encounter HQ Orly(JF) [id number] Date(s): 10/04/16 - 10/05/16 [facility] [address] [place] [address]- Discharge Diagnosis: Chest wall pain Discharge Diagnosis: Musculoskeletal pain Discharge Disposition: Home or Self Care Attending Physician: Ozzie Garza MD Vital Signs 1 2 3 Most recent to oldest [Reference Range]: 97.7 DegF (10/05/16 12:47 AM) 98.1 DegF (10/04/16 7:46 PM) Temperature Oral [96.4-99.1 DegF] 122/76 mmHg (10/05/16 12:47 AM) 113/57 mmHg (10/05/16 12:33 AM) 129/81 mmHg (10/04/16 7:46 PM) Blood Pressure [90-140/60-90 mmHg] 18 BRMIN (10/05/16 12:47 AM) 18 BRMIN (10/05/16 12:33 AM) 20 BRMIN (10/04/16 7:46 PM) Respiratory Rate [14-20 BRMIN] 76 bpm (10/05/16 12:47 AM) 73 bpm (10/05/16 12:33 AM) 86 bpm (10/04/16 7:46 PM) Peripheral Pulse Rate [60-100 bpm] 118.182 kg (10/04/16 7:46 PM) Weight Problem List Condition Effective Dates Status Health Status Informant Acute bronchitis1, 2 01/30/15 Active DM - Diabetes Resolved mellitus(Confirmed) Hyperlipidemia(Confi Resolved rmed) Kidney stone3 02/17/15 Active Kidney stone4 02/17/15 Active Obesity(Confirmed) Active Ureteric stone5 04/24/15 Active 1Data migrated from [facility] on 05/20/15. 2Data migrated from [employer] on 04/14/15. 3Data migrated from [employer] on 04/14/15. 4Data migrated from [employer] on 05/20/15. 5Data migrated from [employer] on 05/20/15. Allergies, Adverse Reactions, Alerts Substance Reaction Severity Status penicillin Active Medications aspirin 324 mg, 4 tab, Route: PO, Drug form: CHEWTAB, ONCE, Dosing Weight 118.182, kg, P riority: STAT, Start date: 10/04/16 22:50:00 NEUROPSYCHOLOGY DIRECTOR, Stop date: 10/04/16 22:50:[address] Notes: Take with food. Start Date: 10/04/16 Stop Date: 10/04/16 Status: Completed Motrin 600 mg oral tablet 600 mg=1 tab, PO, Q6H, PRN Pain, take with food, X 5 day, # 20 tab, 0 Refill(s) Start Date: 10/05/16 Stop Date: 10/10/16 Status: Ordered Saline Flush 0.9% 10 mL, Route: IVP, Drug Form: INJ, Dosing Weight 118.182, kg, PRN, PRN Line Flus h, Start date: 10/04/16 22:50:00 NEUROPSYCHOLOGY DIRECTOR, Duration: 30 day, Stop date: 11/03/16 22:4 9:00 NEUROPSYCHOLOGY DIRECTOR Notes: (Same as: BD Posiflush) Start Date: 10/04/16 Stop Date: 10/05/16 Status: Discontinued Tylenol with Codeine #3 oral tablet 1 tab, Route: PO, Drug Form: TAB, Dosing Weight 118.182, kg, ONCE, STAT, Start d ate: 10/04/16 22:50:00 NEUROPSYCHOLOGY DIRECTOR, Stop date: 10/04/16 22:50:00 NEUROPSYCHOLOGY DIRECTOR Notes: Do not exceed 4gm/day of acetaminophen. (Same as: Tylenol with Codeine # 3) Start Date: 10/04/16 Stop Date: 10/04/16 Status: Completed Tylenol with Codeine #3 oral tablet 1 tab, PO, Q6H, PRN Pain, X 3 day, # 12 tab, 0 Refill(s) Start Date: 10/05/16 Stop Date: 10/08/16 Status: Ordered Results ELECTROLYTES Most recent to 1 oldest [Reference Range]: Sodium Lvl [135-145 144 mEq/L mEq/L] (10/04/16 11:05 PM) Potassium Lvl 3.9 mEq/L [3.5-5.1 mEq/L] (10/04/16 11:05 PM) Chloride Lvl [95-109 103 mEq/L mEq/L] (10/04/16 11:05 PM) CO2 [24-32 mEq/L] 33 mEq/L *HI* (10/04/16 11:05 PM) AGAP [10.0-20.0 11.9 mEq/L mEq/L] (10/04/16 11:05 PM) CHEM PANEL Most recent to 1 oldest [Reference Range]: Creatinine Lvl 1.20 mg/dL [0.50-1.40 mg/dL] (10/04/16 11:05 PM) eGFR 71 mL/min/1.73m2 1 *NA* (10/04/16: PM) BUN [7-22 mg/dL] 22 mg/dL (10/04/16 11:05 PM) B/C Ratio [6-25] 18 (10/04/16 11:05 PM) Glucose Lvl [70-99 126 mg/dL mg/dL] *HI* (10/04/16 11:05 PM) Total Protein 7.2 g/dL [6.4-8.4 g/dL] (10/04/16 11:05 PM) Albumin Lvl [3.5-5.0 3.9 g/dL g/dL] (10/04/16 11:05 PM) Globulin [2.7-4.2 3.3 g/dL g/dL] (10/04/16 11:05 PM) A/G Ratio [0.7-1.6] 1.2 (10/04/16 11:05 PM) Calcium Lvl 9.1 mg/dL [8.5-10.5 mg/dL] (10/04/16 11:05 PM) ALT [0-65 unit/L] 66 unit/L *HI* (10/04/16 11:05 PM) AST [0-37 unit/L] 33 unit/L (10/04/16 11:05 PM) Alk Phos [39-136 76 unit/L unit/L] (10/04/16 11:05 PM) Bili Total [0.2-1.3 0.3 mg/dL mg/dL] (10/04/16 11:05 PM) 1Result Comment: The eGFR is calculated using [...] from the National Kidney Disease Education Program ( NKDEP) which additionally recommends that when the eGFR is used in patients with extremes of body mass index for purposes of drug dosing, the eGFR should be mul tiplied by the estimated BMI. CARDIAC ENZYMES Most recent to 1 oldest [Reference Range]: Total CK [12-191 159 unit/L unit/L] (10/04/16 11:05 PM) CK MB [0.5-3.6 1.0 ng/mL ng/mL] (10/04/16 11:05 PM) CK MB Index 0.6 [0.0-2.5] (10/04/16 11:05 PM) Troponin-I <0.02 ng/mL [0.00-0.40 ng/mL] (10/04/16 11:05 PM) HEMATOLOGY Most recent to 1 oldest [Reference Range]: WBC [3.7-10.4 K/CMM] 7.5 K/CMM (10/04/16 11:05 PM) RBC [4.70-6.10 5.10 M/CMM M/CMM] (10/04/16 11:05 PM) Hgb [14.0-18.0 g/dL] 14.9 g/dL (10/04/16 11:05 PM) Hct [42.0-54.0 %] 44.6 % (10/04/16 11:05 PM) MCV [80.0-94.0 fL] 87.5 fL (10/04/16 11:05 PM) MCH [27.0-31.0 pg] 29.2 pg (10/04/16 11:05 PM) MCHC [32.0-36.0 33.4 g/dL g/dL] (10/04/16 11:05 PM) RDW [11.5-14.5 %] 15.1 % *HI* (10/04/16 11:05 PM) Platelet [133-450 212 K/CMM K/CMM] (10/04/16 11:05 PM) MPV [7.4-10.4 fL] 8.2 fL (10/04/16 11:05 PM) Segs [45.0-75.0 %] 44.8 % *LOW* (10/04/16 11 PM) Lymphocytes 41.1 % [20.0-40.0 %] *HI* (10/04/16 11:05 PM) Monocytes [2.0-12.0 12.0 % %] (10/04/16 11:05 PM) Eosinophils [0.0-4.0 1.4 % %] (10/04/16 11:05 PM) Basophils [0.0-1.0 0.7 % %] (10/04/16 11:05 PM) Segs-Bands # 3.4 K/CMM [1.5-8.1 K/CMM] (10/04/16 11:05 PM) Lymphocytes # 3.1 K/CMM [1.0-5.5 K/CMM] (10/04/16 11:05 PM) Monocytes # [0.0-0.8 0.9 K/CMM K/CMM] *HI* (10/04/16 11:05 PM) Eosinophils # 0.1 K/CMM [0.0-0.5 K/CMM] (10/04/16 11:05 PM) Basophils # [0.0-0.2 0.1 K/CMM K/CMM] (10/04/16 11:05 PM) Immunizations No data available for this section [...]
--- OUTSIDE RECORDS SUMMARY | 2019-01-28 06:47 | XMS REPORT | Summary of Care ---
Author Author [facility] [place] Organization [facility] [place] Address Unknown Phone Unavailable Encounter LUC Villalba(JF) [id number] Date(s): 07/27/15 - 07/27/15 [facility] [place] [address] Discharge Disposition: Home Attending Physician: Yoav [...] Date Related Diagnosis Body Site Cystoscopy1 04/16/15 Miscellaneous operations2 1Cystoscopy under anesthesia, urethral dilation, [...] No. Household alcohol concerns: No. Smoking Status Never smoker; Exposure to Tobacco Smoke None; Cigarette Smoking Last 365 Days No; Reg Smoking Cessation Counseling No Assessment and Plan No data available for this section
--- OUTSIDE RECORDS SUMMARY | 2019-01-28 06:47 | XMS REPORT | Summary of Care ---
Author Organization Unknown Address Unknown Phone Unavailable Encounter HQ Orly(JF) [id number] Date(s): 04/15/15 - 04/16/15 [facility] [address] [place] [address]- Discharge Disposition: Home Physician Attending: Marley Medrano MD Physician Admitting: Marley Medrano MD Vital Signs 1 2 3 Most recent to oldest [Reference Range]: 177.8 cm (04/15/15 2:29 PM) 177.8 cm (04/15/15 8:02 AM) Height 98.9 DegF (04/16/15 3:46 PM) 98.2 DegF (04/16/15 2:11 PM) 97.8 DegF (04/16/15 1:35 PM) Temperature Oral [96.4-99.1 DegF] 130/71 mmHg (04/16/15 3:46 PM) 116/72 mmHg (04/16/15 2:11 PM) 116/74 mmHg (04/16/15 1:35 PM) Blood Pressure [90-140/60-90 mmHg] 18 BRMIN (04/16/15 3:46 PM) 18 BRMIN (04/16/15 2:11 PM) 18 BRMIN (04/16/15 1:35 PM) Respiratory Rate [14-20 BRMIN] 92 bpm (04/16/15 3:46 PM) 82 bpm (04/16/15 2:11 PM) 67 bpm (04/16/15 1:35 PM) Peripheral Pulse Rate [60-100 bpm] 121.364 kg (04/15/15 2:29 PM) 120.909 kg (04/15/15 8:02 AM) Weight 38.39 m2 (04/15/15 2:29 PM) 38.25 m2 (04/15/15 8:02 AM) Body Mass Index Problem List Condition Effective Dates Status Health Status Informant Acute bronchitis1 01/30/15 Active DM - Diabetes Resolved mellitus(Confirmed) Hyperlipidemia(Confi Resolved rmed) Kidney stone2 02/17/15 Active Kidney Resolved stone(Confirmed) 1Data migrated from [employer] on 04/14/15. 2Data migrated from [employer] on 04/14/15. Allergies, Adverse Reactions, Alerts Substance Reaction Severity Status penicillin Active Medications acetaminophen 650 mg, 2 tab, Route: PO, Drug form: TAB, Q4H, Dosing Weight 121.364, kg, PRN Pa in 1-3/Temp > 100.4 F, Start date: 04/15/15 15:37:00, Duration: 30 day, Stop date: 05/15/15 15:36:00 Notes: Do not exceed 4 gm/day. (Same as: Tylenol) Start Date: 04/15/15 Stop Date: 04/16/15 Status: Discontinued acetaminophen-hydrocodone 325 mg-5 mg oral tablet 1 tab, Route: PO, Drug Form: TAB, Dosing Weight 121.364, kg, Q4H, PRN Pain Score 1-3, Start date: 04/15/15 15:37:00, Duration: 30 day, Stop date: 05/15/15 15:36 :00 Notes: (Same as: [place] 325/5) Do not exceed 4gm/day of acetaminophen. Start Date: 04/15/15 Stop Date: 04/16/15 Status: Discontinued Cipro 250 mg oral tablet 250 mg=1 tab, PO, Q12H, X 7 day, # 14 tab, 0 Refill(s) Start Date: 04/16/15 Stop Date: 04/23/15 Status: Ordered Cipro I.V. 400 mg/200 mL intravenous solution 400 mg, 200 mL, Route: IVPB, Drug form: INJ, PRE OP, Dosing Weight 121.364, kg, Start date: 04/16/15 8:00:00 Notes: Do not refrigerate Start Date: 04/16/15 Stop Date: 04/16/15 Status: Discontinued Claritin 10 mg oral tablet 10 mg=1 tab, PO, Daily, # 30 tab, 0 Refill(s) Start Date: 04/16/15 Status: Ordered Colace 100 mg oral capsule 100 mg=1 cap, PO, BID, PRN Constipation, # 20 cap, 0 Refill(s) Start Date: 04/16/15 Status: Ordered Dextrose 50% Syringe 12.5 gm, 25 mL, Route: IVP, Drug Form: INJ, Dosing Weight 121.364, kg, PRN, PRN Blood Glucose Results, Start date: 04/15/15 15:46:00, Duration: 30 day, Stop gisselle e: 05/15/15 15:45:00 Start Date: 04/15/15 Stop Date: 04/16/15 Status: Discontinued Dextrose 50% Syringe 25 gm, 50 mL, Route: IVP, Drug Form: INJ, Dosing Weight 121.364, kg, PRN, PRN Bl ood Glucose Results, Start date: 04/15/15 15:46:00, Duration: 30 day, Stop date: 05/15/15 15:45:00 Start Date: 04/15/15 Stop Date: 04/16/15 Status: Discontinued Dilaudid 1 mg, 0.5 mL, Route: IV, Drug form: INJ, Q4H, Dosing Weight 120.909, kg, PRN Mamta n Score 7-10, Start date: 04/15/15 14:34:00, Duration: 30 day, Stop date: 14:33:00 Notes: (Same as: Dilaudid) Start Date: 04/15/15 Stop Date: 04/16/15 Status: Discontinued docusate 100 mg, 1 cap, Route: PO, Drug form: CAP, BID, Dosing Weight 121.364, kg, Start date: 04/15/15 17:00:00, Duration: 30 day, Stop date: 05/15/15 9:00:00 Notes: (Same as: Colace) (Do Not Crush) Start Date: 04/15/15 Stop Date: 04/16/15 Status: Discontinued Flomax 0.4 mg, 1 cap, Route: PO, Drug form: CAP, Daily, Dosing Weight 120.909, kg, Star t date: 04/15/15 14:34:00, Duration: 30 day, Stop date: 05/15/15 9:00:00 Notes: (Same As: Flomax) "Do Not Crush" Start Date: 04/15/15 Stop Date: 04/16/15 Status: Discontinued Flomax 0.4 mg oral capsule =1 tab, PO, Daily, # 14 tab, 0 Refill(s) Start Date: 04/16/15 Stop Date: 04/30/15 Status: Ordered glucagon 1 mg, Route: IM, Drug form: PDR/INJ, PRN, Dosing Weight 121.364, kg, PRN Blood G lucose Results, Start date: 04/15/15 15:46:00, Duration: 30 day, Stop date: 01/25 15:45:00 Start Date: 04/15/15 Stop Date: 04/16/15 Status: Discontinued hydromorphone 1 mg, Route: IVP, Drug form: INJ, ONCE, Dosing Weight 120.909, kg, Priority: STA T, Start date: 04/15/15 10:23:00, Stop date: 04/15/15 10:23:00 Start Date: 04/15/15 Stop Date: 04/15/15 Status: Completed hydromorphone 1 mg, Route: IVP, Drug form: INJ, ONCE, Dosing Weight 120.909, kg, Priority: STA T, Start date: 04/15/15 14:04:00, Stop date: 04/15/15 14:04:00 Start Date: 04/15/15 Stop Date: 04/15/15 Status: Completed hydromorphone 1 mg, 0.5 mL, Route: IVP, Drug form: INJ, ONCE, Dosing Weight 120.909, kg, Prior ity: STAT, Start date: 04/15/15 8:12:00, Stop date: 04/15/15 8:12:00 Notes: (Same as: Dilaudid) Start Date: 04/15/15 Stop Date: 04/15/15 Status: Completed insulin aspart 3 unit, 0.03 mL, Route: SUB-Q, Drug form: SOLN, Bedtime, Dosing Weight 121.364, kg, PRN Blood Glucose Results, Start date: 04/15/15 15:46:00, Duration: 30 day, Stop date: 05/15/15 15:45:00 Notes: Roll in palms of hands gently; Do not shake vigorously. (Same as: NovoLO G)"single patient use only" Stable for 28 days at room temperature.Expires in _ ____ days from Date Start Date: 04/15/15 Stop Date: 04/16/15 Status: Discontinued insulin aspart 2 unit, 0.02 mL, Route: SUB-Q, Drug form: SOLN, Bedtime, Dosing Weight 121.364, kg, PRN Blood Glucose Results, Start date: 04/15/15 15:46:00, Duration: 30 day, Stop date: 05/15/15 15:45:00 Notes: Roll in palms of hands gently; Do not shake vigorously. (Same as: NovoLO G)"single patient use only" Stable for 28 days at room temperature.Expires in _ ____ days from Date Start Date: 04/15/15 Stop Date: 04/16/15 Status: Discontinued insulin aspart 4 unit, 0.04 mL, Route: SUB-Q, Drug form: SOLN, Bedtime, Dosing Weight 121.364, kg, PRN Blood Glucose Results, Start date: 04/15/15 15:46:00, Duration: 30 day, Stop date: 05/15/15 15:45:00 Notes: Roll in palms of hands gently; Do not shake vigorously. (Same as: NovoLO G)"single patient use only" Stable for 28 days at room temperature.Expires in _ ____ days from Date Start Date: 04/15/15 Stop Date: 04/16/15 Status: Discontinued insulin aspart 1 unit, 0.01 mL, Route: SUB-Q, Drug form: SOLN, Bedtime, Dosing Weight 121.364, kg, PRN Blood Glucose Results, Start date: 04/15/15 15:46:00, Duration: 30 day, Stop date: 05/15/15 15:45:00 Notes: Roll in palms of hands gently; Do not shake vigorously. (Same as: NovoLO G)"single patient use only" Stable for 28 days at room temperature.Expires in _ ____ days from Date Start Date: 04/15/15 Stop Date: 04/16/15 Status: Discontinued insulin aspart 2 unit, 0.02 mL, Route: SUB-Q, Drug form: SOLN, TID-Before Meals, Dosing Weight 121.364, kg, PRN Blood Glucose Results, Start date: 04/15/15 15:46:00, Duration: 30 day, Stop date: 05/15/15 15:45:00 Notes: Roll in palms of hands gently; Do not shake vigorously. (Same as: NovoLO G)"single patient use only" Stable for 28 days at room temperature.Expires in _ ____ days from Date Start Date: 04/15/15 Stop Date: 04/16/15 Status: Discontinued insulin aspart 1 unit, 0.01 mL, Route: SUB-Q, Drug form: SOLN, TID-Before Meals, Dosing Weight 121.364, kg, PRN Blood Glucose Results, Start date: 04/15/15 15:46:00, Duration: 30 day, Stop date: 05/15/15 15:45:00 Notes: Roll in palms of hands gently; Do not shake vigorously. (Same as: NovoLO G)"single patient use only" Stable for 28 days at room temperature.Expires in _ ____ days from Date Start Date: 04/15/15 Stop Date: 04/16/15 Status: Discontinued insulin aspart 3 unit, 0.03 mL, Route: SUB-Q, Drug form: SOLN, TID-Before Meals, Dosing Weight 121.364, kg, PRN Blood Glucose Results, Start date: 04/15/15 15:46:00, Duration: 30 day, Stop date: 05/15/15 15:45:00 Notes: Roll in palms of hands gently; Do not shake vigorously. (Same as: NovoLO G)"single patient use only" Stable for 28 days at room temperature.Expires in _ ____ days from Date Start Date: 04/15/15 Stop Date: 04/16/15 Status: Discontinued insulin aspart 4 unit, 0.04 mL, Route: SUB-Q, Drug form: SOLN, TID-Before Meals, Dosing Weight 121.364, kg, PRN Blood Glucose Results, Start date: 04/15/15 15:46:00, Duration: 30 day, Stop date: 05/15/15 15:45:00 Notes: Roll in palms of hands gently; Do not shake vigorously. (Same as: NovoLO G)"single patient use only" Stable for 28 days at room temperature.Expires in _ ____ days from Date Start Date: 04/15/15 Stop Date: 04/16/15 Status: Discontinued insulin aspart 5 unit, 0.05 mL, Route: SUB-Q, Drug form: SOLN, TID-Before Meals, Dosing Weight 121.364, kg, PRN Blood Glucose Results, Start date: 04/15/15 15:46:00, Duration: 30 day, Stop date: 05/15/15 15:45:00 Notes: Roll in palms of hands gently; Do not shake vigorously. (Same as: NovoLO G)"single patient use only" Stable for 28 days at room temperature.Expires in _ ____ days from Date Start Date: 04/15/15 Stop Date: 04/16/15 Status: Discontinued Invokana 100 mg oral tablet 100 mg=1 tab, PO, Before Breakfast, # 30 tab, 0 Refill(s) Start Date: 04/16/15 Status: Ordered Janumet XR 100/1000 mg tablet Janumet XR 100/1000 mg tablet, 1 tab, PO, Bedtime, Janumet XR 100/1000 mg tablet (sitagliptin/metformin), Refill(s) 0 Special Instructions: Janumet XR 100/1000 mg tablet (sitagliptin/metformin) Start Date: 04/16/15 Status: Ordered morphine Sulfate 4 mg, Route: IVP, ONCE, Dosing Weight 120.909, kg, Priority: STAT, Start date: 0 04/15/15 9:43:00, Stop date: 04/15/15 9:43:00 Start Date: 04/15/15 Stop Date: 04/15/15 Status: Completed morphine Sulfate 2 mg, 1 mL, Route: IVP, Drug form: INJ, Q4H, Dosing Weight 121.364, kg, PRN Pain Score 4-6, Start date: 04/15/15 15:37:00, Duration: 30 day, Stop date: 05/15/15 15:36:00 Notes: (Same as:MORPhine Sulfate) Start Date: 04/15/15 Stop Date: 04/16/15 Status: Discontinued Nasacort 2 sprays, Each Affected Nostril, Daily, 0 Refill(s) Start Date: 04/16/15 Status: Ordered ondansetron 4 mg, 2 mL, Route: IVP, Drug form: INJ, Q8H, Dosing Weight 121.364, kg, PRN Naus ea & Vomiting, Start date: 04/15/15 14:34:00, Duration: 30 day, Stop date: 05/15/15 14:33:00 Notes: (Same as: Brandy) MEDICATION WASTE Product Size: 4 mgProduct Was charlene: ___ mg Start Date: 04/15/15 Stop Date: 04/16/15 Status: Discontinued ondansetron 4 mg, 2 mL, Route: IVP, Drug form: INJ, ONCE, Dosing Weight 120.909, kg, Priorit y: STAT, Start date: 04/15/15 8:12:00, Stop date: 04/15/15 8:12:00 Notes: (Same as: Brandy) MEDICATION WASTE Product Size: 4 mgProduct Was charlene: ___ mg Start Date: 04/15/15 Stop Date: 04/15/15 Status: Completed ondansetron 4 mg, 2 mL, Route: IVP, Drug form: INJ, Q4H, Dosing Weight 121.364, kg, PRN Naus ea & Vomiting, Start date: 04/15/15 15:37:00, Duration: 30 day, Stop date: 05/15/15 15:36:00 Notes: (Same as: Brandy) MEDICATION WASTE Product Size: 4 mgProduct Was charlene: ___ mg Start Date: 04/15/15 Stop Date: 04/16/15 Status: Discontinued pantoprazole 40 mg, 1 tab, Route: PO, Drug form: ECTAB, Before Breakfast, Dosing Weight 121.3 64, kg, Start date: 04/16/15 7:30:00, Duration: 30 day, Stop date: 05/15/15 7:30 :00 Notes: Tablet should not be chewed or crushed.(Same as: Protonix) Start Date: 04/16/15 Stop Date: 04/16/15 Status: Discontinued pravastatin 40 mg oral tablet 40 mg=1 tab, PO, Daily, # 90 tab, 0 Refill(s) Start Date: 04/16/15 Status: Ordered Pyridium 200 mg, 2 tab, Route: PO, Drug form: TAB, TID-After Meals, Dosing Weight 121.364 , kg, Start date: 04/16/15 12:30:00, Duration: 2 day, Stop date: 04/18/15 8:30:0 0 Notes: Give with meals.(Same as: Pyridium) Start Date: 04/16/15 Stop Date: 04/16/15 Status: Discontinued Pyridium 200 mg oral tablet 200 mg=1 tab, PO, TID, PRN Dysuria, X 3 day, # 9 tab, 0 Refill(s) Start Date: 04/16/15 Stop Date: 04/19/15 Status: Ordered Saline Flush 0.9% 10 ml, Route: IVP, Drug Form: INJ, Dosing Weight 121.364, kg, PRN, PRN Line Flus h, Start date: 04/15/15 14:34:00, Duration: 30 day, Stop date: 05/15/15 14:33:00 Notes: (Same as: BD Posiflush) Start Date: 04/15/15 Stop Date: 04/16/15 Status: Discontinued Saline Flush 0.9% 10 mL, Route: IVP, Drug Form: INJ, Dosing Weight 120.909, kg, PRN, PRN Line Flus h, Start date: 04/15/15 8:12:00, Duration: 30 day, Stop date: 05/15/15 8:11:00 Notes: (Same as: BD Posiflush) Start Date: 04/15/15 Stop Date: 04/15/15 Status: Discontinued Saline Flush 0.9% 10 ml, Route: IVP, Drug Form: INJ, Dosing Weight 121.364, kg, PRN, PRN Line Flus h, Start date: 04/15/15 15:37:00, Duration: 30 day, Stop date: 05/15/15 15:36:00 Notes: (Same as: BD Posiflush) Start Date: 04/15/15 Stop Date: 04/16/15 Status: Discontinued Sodium Chloride 0.9% (Bolus) IV 1,000 mL, 1000 ml/hr, Infuse Over: 1 hr, Route: IV, 1,000, Drug form: INJ, ONCE, Priority: STAT, Dosing Weight 120.909 kg, Start date: 04/15/15 8:12:00, Duratio n: 1 doses or times, Stop date: 04/15/15 8:12:00 Start Date: 04/15/15 Stop Date: 04/15/15 Status: Completed Sodium Chloride 0.9% IV 1,000 mL 1,000 mL, Rate: 125 ml/hr, Infuse over: 8 hr, Route: IV, Dosing Weight 121.364 k g, Total Volume: 1,000, Start date: 04/15/15 14:34:00, Duration: 30 day, Stop da te: 05/15/15 14:33:00 Start Date: 04/15/15 Stop Date: 04/16/15 Status: Discontinued Tylenol with Codeine #3 oral tablet 1 - 2 tab, PO, Q6H, PRN Pain, X 4 day, # 32 tab, 0 Refill(s) Start Date: 04/16/15 Stop Date: 04/20/15 Status: Ordered Results ELECTROLYTES Most recent to 1 2 oldest [Reference Range]: Sodium Lvl [135-145 138 mEq/L 133 mEq/L mEq/L] (04/16/15 3:16 AM) *LOW* (04/15/15 8:18 AM) Potassium Lvl 3.8 mEq/L 3.5 mEq/L [3.5-5.1 mEq/L] (04/16/15 3:16 AM) (04/15/15 8:18 AM) Chloride Lvl [95-109 102 mEq/L 98 mEq/L mEq/L] (04/16/15 3:16 AM) (04/15/15 8:18 AM) CO2 [24-32 mEq/L] 25 mEq/L 27 mEq/L (04/16/15 3:16 AM) (04/15/15 8:18 AM) AGAP [10.0-20.0 14.8 mEq/L 11.5 mEq/L mEq/L] (04/16/15 3:16 AM) (04/15/15 8:18 AM) CHEM PANEL Most recent to 1 2 oldest [Reference Range]: Creatinine Lvl 1.6 mg/dL 1.5 mg/dL [0.5-1.4 mg/dL] *HI* *HI* (04/16/15 3:16 AM) (04/15/15 8:18 AM) eGFR 50 mL/min/1.73m2 1 54 mL/min/1.73m2 2 *NA* *NA* (04/16/15:16 AM) (04/15/15 8:18 AM) BUN [7-22 mg/dL] 16 mg/dL 21 mg/dL (04/16/15 3:16 AM) (04/15/15 8:18 AM) B/C Ratio [6-25] 14 (04/15/15 8:18 AM) Glucose Lvl [70-99 135 mg/dL 3 216 mg/dL 4 mg/dL] *HI* *HI* (04/16/15 3:16 AM) (04/15/15 8:18 AM) Total Protein 7.4 g/dL [6.4-8.4 g/dL] (04/15/15 8:18 AM) Albumin Lvl [3.5-5.0 4.0 g/dL g/dL] (04/15/15 8:18 AM) Globulin [2.0-4.0 3.4 g/dL g/dL] (04/15/15 8:18 AM) A/G Ratio [0.7-1.6] 1.2 (04/15/15 8:18 AM) Calcium Lvl 8.6 mg/dL 8.9 mg/dL [8.5-10.5 mg/dL] (04/16/15 3:16 AM) (04/15/15 8:18 AM) Magnesium Lvl 1.8 mg/dL [1.8-2.4 mg/dL] (04/16/15 3:16 AM) ALT [0-65 unit/L] 68 unit/L *HI* (04/15/15 8:18 AM) AST [0-37 unit/L] 37 unit/L (04/15/15 8:18 AM) Alk Phos [39-136 84 unit/L unit/L] (04/15/15 8:18 AM) Bili Total [0.2-1.3 0.4 mg/dL mg/dL] (04/15/15 8:18 AM) Amylase Lvl [25-115 69 unit/L unit/L] (04/15/15 8:18 AM) Lipase Lvl [73-393 216 unit/L unit/L] (04/15/15 8:18 AM) 1Result Comment: The eGFR is calculated using [...] be mul tiplied by the estimated BMI. 2Result Comment: The eGFR is calculated using [...] be mul tiplied by the estimated BMI. 3Interpretive Data: Adult reference range values reflect the clinical guidelines of the [place] [employer]. 4Interpretive Data: Adult reference range values reflect the clinical guidelines of the [place] [employer]. SPECIAL CHEMISTRY Most recent to 1 2 oldest [Reference Range]: Hgb A1C [<=5.6 %] 8.1 % *HI* (04/15/15 8:20 AM) URINE AND STOOL Most recent to 1 2 oldest [Reference Range]: UA Turbidity [Clear] Clear (04/15/15 8:18 AM) UA Color [Yellow] Yellow *NA* (04/15/15 8:18 AM) UA pH [5.0-8.0] 5.0 (04/15/15 8:18 AM) UA Spec Grav 1.020 [<=1.030] (04/15/15 8:18 AM) UA Glucose [Negative >=1000 mg/dL mg/dL] *ABN* (04/15/15 8:18 AM) UA Blood [Negative] Moderate *ABN* (04/15/15 8:18 AM) UA Ketones Trace [Negative] *ABN* (04/15/15 8:18 AM) UA Protein Negative [Negative] (04/15/15 8:18 AM) UA Urobilinogen 0.2 EU/dL [0.1-1.0 EU/dL] (04/15/15 8:18 AM) UA Bili [Negative] Negative *NA* (04/15/15 8:18 AM) UA Leuk Est Negative [Negative] (04/15/15 8:18 AM) UA Nitrite Negative [Negative] (04/15/15 8:18 AM) UA WBC [None Seen 0-2 /HPF /HPF] (04/15/15 8:18 AM) UA RBC [0-2 /HPF] 3-5 /HPF *ABN* (04/15/15 8:18 AM) UA Bacteria [None None Seen Seen] (04/15/15 8:18 AM) UA Sq Epi [Few /LPF] Rare /LPF (04/15/15 8:18 AM) HEMATOLOGY Most recent to 1 2 oldest [Reference Range]: WBC [3.7-10.4 K/CMM] 10.8 K/CMM 11.5 K/CMM *HI* *HI* (04/16/15 3:16 AM) (04/15/15 8:18 AM) RBC [4.70-6.10 4.95 M/CMM 4.97 M/CMM M/CMM] (04/16/15 3:16 AM) (04/15/15 8:18 AM) Hgb [14.0-18.0 g/dL] 14.7 g/dL 14.9 g/dL (04/16/15:16 AM) (04/15/15 8:18 AM) Hct [42.0-54.0 %] 44.3 % 44.6 % (04/16/15 3:16 AM) (04/15/15 8:18 AM) MCV [80.0-94.0 fL] 89.4 fL 89.8 fL (04/16/15:16 AM) (04/15/15 8:18 AM) MCH [27.0-31.0 pg] 29.7 pg 30.1 pg (04/16/15:16 AM) (04/15/15 8:18 AM) MCHC [32.0-36.0 33.2 g/dL 33.5 g/dL g/dL] (04/16/15 3:16 AM) (04/15/15 8:18 AM) RDW [11.5-14.5 %] 13.6 % 13.9 % (04/16/15 3:16 AM) (04/15/15 8:18 AM) Platelet [133-450 191 K/CMM 224 K/CMM K/CMM] (04/16/15 3:16 AM) (04/15/15 8:18 AM) MPV [7.4-10.4 fL] 8.3 fL 8.2 fL (04/16/15 3:16 AM) (04/15/15 8:18 AM) Segs [45.0-75.0 %] 73.4 % 77.0 % (04/16/15 3:16 AM) *HI* (04/15/15 8:18 AM) Bands [0.0-11.0 %] 5.0 % (04/15/15 8:18 AM) Lymphocytes 15.5 % 11.0 % [20.0-40.0 %] *LOW* *LOW* (04/16/15 3:16 AM) (04/15/15 8:18 AM) Atypical Lymphs 0.0 % [<=0.0 %] (04/15/15 8:18 AM) Monocytes [2.0-12.0 10.3 % 6.0 % %] (04/16/15 3:16 AM) (04/15/15 8:18 AM) Eosinophils [0.0-4.0 0.3 % 1.0 % %] (04/16/15 3:16 AM) (04/15/15 8:18 AM) Basophils [0.0-1.0 0.5 % %] (04/16/15 3:16 AM) Segs-Bands # 7.9 K/CMM 9.4 K/CMM [1.5-8.1 K/CMM] (04/16/15 3:16 AM) *HI* (04/15/15 8:18 AM) Lymphocytes # 1.7 K/CMM 1.3 K/CMM [1.0-5.5 K/CMM] (04/16/15 3:16 AM) (04/15/15 8:18 AM) Monocytes # [0.0-0.8 1.1 K/CMM 0.7 K/CMM K/CMM] *HI* (04/15/15 8:18 AM) (04/16/15 3:16 AM) Eosinophils # 0.0 K/CMM 0.1 K/CMM [0.0-0.5 K/CMM] (04/16/15 3:16 AM) (04/15/15 8:18 AM) Basophils # [0.0-0.2 0.1 K/CMM K/CMM] (04/16/15 3:16 AM) Tot Cell Ct 100 *NA* (04/15/15 8:18 AM) RBC Morph Normal (04/15/15 8:18 AM) Plt Morph Normal (04/15/15 8:18 AM) Immunizations No data available for this section [...] Smoking Cessation Counseling No Assessment and Plan Extracted from: Title: Operative report Author: Yoav Starr MD Date: 04/16/15 PREOPERATIVE DIAGNOSIS Right ureteral vesicle junction stone, right flank pain, right hydroureteronephrosis POSTOPERATIVE DIAGNOSIS Same, bulbar urethral stricture PROCEDURE Cystoscopy under anesthesia, urethral dilation, right ureteroscopy, laser lithotripsy and basket extraction of stone,and right ureteral stent placement. SURGEON Yoav Starr MD ANESTHESIA General SPECIMENS Right ureteral calculus. DRAINS: A 5-Pashto 26-cm double-J right ureteral stent. STATEMENT OF OPERATIVE NEED: The patient is a 49-year-old diabetic male who presented with ahistory of right flank pain. CT revealed a 3.5 mm right ureterovesical junction stone. His creatinine was elevated at 1.6. The risks, benefits and alternatives to right ureteroscopy, laser lithotripsy, basket extraction and stent placement were explained to the patient and the patient provided written and verbal consent to proceed. SUMMARY OF OPERATION: The patient was taken to the operating room, placed supine on the operating table. After adequate general endotracheal anesthesia was administered, the patient was given 400 mg of IV Cipro and placed in dorsal lithotomy position using Jose stirrups. All pressure points were padded. The patient was prepped and draped in standard surgical fashion. Rigid cystoscopy was performed which revealed a weblike bulbar urethral stricture that was able to be passed using the 22 Pashto cystoscope. Once in the bladder, there appeared to be a stone at the right ureteral orifice. This stone was too large to grasp directly and therefore I opted for rigid ureteroscopy. Through a 5-Pashto open-ended catheter, a 0.035 sensor wire was placed beyond the stone into the collecting system under fluoroscopic guidance. The catheter and cystoscope were then backloaded off the wire. An 8F/10F dilator was advanced to the level of the stone. The wire was then clamped to the drape as a safety wire. The rigid ureteroscope was advanced adjacent to the wire to the level of the stone. A 365 micron holmium laser fiber was advanced through the working channel of the ureteroscope and used to fragment the stone into several smaller pieces. A 0- tip nitinol basket was used to grasp these stone fragments and these were sent as a specimen labeled right ureteral stone. A 5 Pashto 26 cm double-J right ureteral stent was advanced over the wire into the collecting system under fluoroscopic guidance. The radiographic pusher was used to ensure good coil both within the collecting system as well as in the bladder. The dangler string was left intact for removal in clinic. At this point, the patient's bladder was drained. The patient was cleaned, taken out of dorsal lithotomy position, awakened from anesthesia. Postop plan is to discharge patient home and follow up in approximately 1 week for stent removal. Extracted from: Title: Urology consult Author: Yoav Starr MD Date: 04/15/15 Impression and Plan 3.5mm right UVJ stone with right hydroureteronephrosis. Plan to monitor for passage with pain control, IV fluids and Flomax. Will recheck labs in AM. NPO after midnight just in case terrence would require operative intervention, but I informed him that he is statistically likely to pass this stone over the next few weeks and could be sent home if his pain is well controlled. Currently he denies any significant pain. Thank you for allowing me to participate in this patient's care.
--- OUTSIDE RECORDS SUMMARY | 2019-01-28 06:47 | XMS REPORT | Summary of Care ---
Author Author [facility] Organization [facility] Address Unknown Phone Unavailable Encounter HQ Oryl(FIN) [id number] Date(s): 12/27/18 - 12/27/18 [facility] [address] [place] [address] Attending Physician: Yoav Starr MD Vital Signs [...]
--- OUTSIDE RECORDS SUMMARY | 2019-01-28 06:47 | XMS REPORT | Summary of Care ---
Author Author [facility] [place] Organization [facility] [place] Address Unknown Phone Unavailable Encounter LUC Villalba(JF) [id number] Date(s): 06/30/16 - 06/30/16 [facility] [place] [address] [address]- Discharge Disposition: Home or Self Care Attending [...]
--- OUTSIDE RECORDS SUMMARY | 2019-01-28 06:47 | XMS REPORT | Summary of Care ---
Author Author [facility] [place] Address Unknown Phone Unavailable Encounter LUC Villalba(JF) [id number] Date(s): 06/02/15 - 06/02/15 [facility] [place] [address] Discharge Disposition: Home Attending Physician: Yoav [...]
--- OUTSIDE RECORDS SUMMARY | 2019-01-28 06:47 | XMS REPORT | Summary of Care ---
Author Author [facility] Outpatient [facility] [place] [facility] [place] Address Unknown Phone Unavailable Encounter LUC Villalba(FIN) [id number] Date(s): 12/28/17 - 12/28/17 [facility] Outpatient Imaging [place] [address], [place] [address]- [place] Encounter Diagnosis Pain in right elbow (Final) - 01/02/18 Other enthesopathies, not elsewhere classified (Final) - Strain of other extensor muscle, fascia and tendon at forearm level, right arm, initial encounter (Final) - Discharge Disposition: Home or Self Care Attending Physician: Leonard Grey MD Vital Signs No data available for [...]
--- OUTSIDE RECORDS SUMMARY | 2019-01-28 06:47 | XMS REPORT | Summary of Care ---
Author Author [facility] Urology [facility] Organization [facility] Address Unknown Phone Unavailable Encounter LUC Villalba(FIN) [id number] Date(s): 12/14/18 - 12/14/18 [facility] [address] [place] [address] Attending Physician: Sofia Frausto MSN, RN, FLIGHT OPERATIONS ENGINEER-C Vital Signs No data available for this [...]
--- OUTSIDE RECORDS SUMMARY | 2019-01-28 06:47 | XMS REPORT ---
Author Author [facility] Address Unknown Phone Unavailable Care Team Providers Care Psychiatric Aides Teacher Name Role Phone DR Shakir OBANDO Unavailable Unavailable Problems This patient has no known problems. Allergies, Adverse Reactions, Alerts This patient has no known allergies or adverse reactions. Medications This patient has no known medications. Encounters Start Date/Time End Date/Time Encounter Type Admission Type Attending Clinicians Care Facility Care Department Encounter ID 2018-02-06 08:03:00 2018-02-06 23:59:00 Outpatient [facility] [id number] Results Test Description Test Time Test Comments Text Results Atomic Results Result Comments CT CALCIUM SCORING WITHOUT CONTRAST 2018-02-06 08:47:[address] without contrast, Coronary calcium scoringLocation Code: [id number] history: Coronary artery disease screeningTechnique: Cardiac-gated, helical CT of the heart was performed withoutcontrast. Coronary calcium scores were calculated on a separate workstation.One or more of the following dose reduction techniques were used: Automatedexposure control, adjustment of the mA and or KV according to patient size,and/or utilization of iterative reconstruction technique. DLP: 448 mGy- cm.Findings:Agatston scoresLeft main: 47.6Left anterior descendinLeft circumflex: 43.1Right coronary artery: 2.90Total Agatston score: 304Coronary calcium volume: 272Percentile ranking: Between 75 and 90% (In a published study, between 75 and90% of people of the same gender and similar age had the same or lower scores.)Extracardiac findings: NoneImpression: Total coronary calcium score of 304 consistent with moderate plaque burden. US VENOUS DOPPLER LT LOW EXT 2017-03-16 11:35:12 Exam: Left lower extremity venous Doppler ultrasoundHistory: Pain and swellingLocation: [id number]: High- resolution grayscale, color Doppler, and spectral analysis ofthe deep venous system of the left lower extremity was performed.Findings:There is normal compression and augmentation of the common and superficialfemoral as well as the popliteal veins and tibioperoneal trunks. Normal flowidentified.Impression:1. No evidence of venous thrombosis.
[2019-01-28 11:08] VITALS: BP 114/76
--- NOTE | 2019-01-28 17:56 | Operative Report ---
DATE OF PROCEDURE: 01/28/2019 SURGEON: Johnathan Yadav MD CHIEF COMPLAINT: Anterior neck scar contracture. POSTOPERATIVE DIAGNOSIS: Anterior neck scar contracture. OPERATIVE PROCEDURE: Scar revision in the anterior neck with Z-plasty, 4 flaps were elevated, 4 flaps used. ANESTHESIOLOGIST: Dr. Dash. INDICATIONS: This 53-year-old male has had anterior cervical surgery about 6 months ago. The patient's neck has been doing well. The patient's anterior cervical incision is carmelina. The patient has difficulty extending his neck. The patient has been treated with massage and steroid injection with no improvement of the condition. It was decided that scar revision with Z-plasties and other necessary procedure will be beneficial for him. DESCRIPTION OF PROCEDURE: The patient was taken to the operating room, put under general anesthesia, endotracheally intubated. The neck area was injected with 1% Xylocaine with 1:100,000 epinephrine for hemostasis. The area was prepped and draped in a sterile fashion. The scar contracture was about 6 to 7 cm. It was broken down into 2 parts. The inferior part was addressed first. A Z-plasty was created in the inferior half of the neck. The angle of the flaps was about 45 degrees. The Z-plasty was created. The 2 flaps were undermined in the subcutaneous plane without any problem. Hemostasis was achieved using the bipolar cautery. The 2 flaps were transposed and sutured in place using 4-0 Prolene suture in interrupted fashion. The upper part of the scar was addressed. In the superior portion of the scar, again 2 flaps were created by doing a Z-plasty. Angle of the flaps was about again 45 degrees. The surrounding soft tissue was undermined and the flaps were elevated in the subcutaneous plane. Hemostasis was achieved using the bipolar cautery. The flaps were transposed and sutured in place again using 4-0 prolene suture in interrupted fashion. By doing the 2 Z-plasties, the skin incision in the neck was able to be extended without any problem and adequate lengthening of the neck was created. The patient tolerated the above procedure well with minimal blood loss. The patient was able to be transferred to the recovery room in stable condition. Johnathan Yadav MD [facility] /[id number]
== END | disposition home or self-care (01) ==
LOC: OR 06:42
PROVIDERS: ATTEND Otolaryngology Otolaryngology/Facial Plastic Surgery
DX: L90.5 Scar conditions and fibrosis of skin (principal); E11.9 Type 2 diabetes mellitus without complications; Z88.0 Allergy status to penicillin; Z98.1 Arthrodesis status; Z89.022 Acquired absence of left finger(s); Z79.84 Long term (current) use of oral hypoglycemic drugs; Z79.82 Long term (current) use of aspirin; Z87.442 Personal history of urinary calculi; Z87.891 Personal history of nicotine dependence
CPT/HCPCS: 14040; 36415; 82948; 93005; J1100; J1885; J2001; J2250; J2405; J2704; J2710